=== PATIENT | male | born 1960 | race Caucasian/White ===

== ENCOUNTER 2021-11-06 09:53 | Outpatient (CLI) | payer OTHER ==
[2021-11-06 10:24] LABS: BASOPHILS # (AUTO) 0.1 10^3/uL (0.0-0.1); BASOPHILS % (AUTO) 0.5 %; EOSINOPHILS # (AUTO) 0.2 10^3/uL (0.0-0.7); HCT - HEMATOCRIT 44.6 % (42.0-52.0); LYMPHOCYTES # (AUTO) 1.7 10^3/uL (1.5-3.5); LYMPHOCYTES % (AUTO) 18.5 %; MEAN CORPUSCULAR HEMOGLOBIN 32.2 pg (27.0-31.0); MEAN CORPUSCULAR HGB CONC 33.6 g/dL (32.0-36.0); MEAN CORPUSCULAR VOLUME 95.7 fL (80.0-94.0); MEAN PLATELET VOLUME 9.2 fL (7.4-11.4); MONOCYTES # (AUTO) 0.6 10^3/uL (0.0-1.0); NEUTROPHILS # (AUTO) 6.7 10^3/uL (1.5-6.6); NEUTROPHILS % (AUTO) 72.7 %; PLT - PLATELET COUNT 288 10^3/uL (130-450); RED BLOOD COUNT 4.66 10^6/uL (4.70-6.10); RED CELL DISTRIBUTION WIDTH 11.4 % (12.0-15.0); WHITE BLOOD COUNT 9.2 x10^3/uL (4.8-10.8)
[2021-11-06 10:31] LABS: PT - PROTHROMBIN TIME 11.7 secs (9.9-12.6)
[2021-11-06 10:34] LABS: ALBUMIN 4.4 g/dL (3.2-5.5); ALBUMIN/GLOBULIN RATIO 1.2 (1.0-2.2); BILIRUBIN,TOTAL 1.3 mg/dL (0.2-1.0); CALCIUM 9.5 mg/dL (8.5-10.3); CREATININE 0.7 mg/dL (0.6-1.2); POTASSIUM 4.5 mmol/L (3.5-5.0); TOTAL PROTEIN 8.2 g/dL (6.7-8.2)
== END 2021-11-06 09:54 | disposition home or self-care (01) ==
LOC: LAB 09:53
PROVIDERS: ATTEND Internal Medicine Hematology & Oncology
DX: C44.92 Squamous cell carcinoma of skin, unspecified (principal)
CPT/HCPCS: 36415; 80050; 85610; 85730

== ENCOUNTER 2021-11-23 10:25 | Day surgery (SDC) | payer OTHER ==
[2021-11-23] MEDS ORDERED: CEFAZOLIN SODIUM IN 0.9 % NACL 2 GM/50 ML BAG IV ONE (10:40)
[2021-11-23] MEDS ORDERED: LACTATED RINGERS 1,000 ML IV ONE (10:59)
--- NOTE | 2021-11-23 11:13 | ANESTHESIA ---
Pre-Anesthesia VS, & Labs - Diagnosis squamous cell ca - Procedure portacath placement Vital Signs: Temp Pulse Resp BP Pulse Ox 36.6 C 86 4 L 32/80 L 96 11/23/21 10:47 11/23/21 10:47 11/23/21 10:47 11/23/21 10:47 11/23/21 10:47 Height: 5 ft 11 in Weight (kg): 69.3 kg Body Mass Index: 21.3 BMI Classification: Healthy weight - NPO >8 hours Home Medications and Allergies Home Medications: Ambulatory Orders Atorvastatin Calcium 40 mg PO DAILY 11/23/21 Nicotine 21 mg Patch [Nicoderm] 1 each TOP ONCE 11/23/21 traMADol [Ultram] 50 mg PO ONCE 11/23/21 Multivitamin [Multivitamins] 1 each PO DAILY 11/28/12 Aspirin [Aspirin EC] 81 mg PO DAILY 11/06/21 Atorvastatin Calcium 40 mg PO DAILY 11/23/21 Nicotine 21 mg Patch [Nicoderm] 1 each TOP ONCE 11/23/21 traMADol [Ultram] 50 mg PO ONCE 11/23/21 Allergies/Adverse Reactions: Allergies Allergy/AdvReac Type Severity Reaction Status Date / Time No Known Drug Allergies Allergy Verified 11/14/12 13:26 Anes History & Medical History - Anesthetic History Anesthesia Complications: reports: No previous complications - Medical History Cardiovascular: reports: None Pulmonary: reports: None Gastrointestinal: reports: None Urinary: reports: None Musculoskeletal: reports: Osteoarthritis, Gout Endocrine/Autoimmune: reports: None Skin: reports: None Smoking Status: Current every day smoker History of Cancer?: Yes - Surgical History General: reports: Colonoscopy Eyes Ears Nose Throat (EENT): reports: Cataracts Orthopedic: reports: Arthroscopic surgery, Other Exam General: Alert, Oriented x3 Dental: Other (poor dentition, none loose per patient) Mouth Opening: Greater than 4 Fingerbreadths Neck Mobility: Normal Mallampati classification: II Thyromental Distance: greater than 6 cm Respiratory: Lungs clear Cardiovascular: Regular rate Plan Anesthesia Type: MAC, Total IV Consent for Procedure(s) Verified and Reviewed: Yes Code Status: Attempt Resuscitation ASA classification: 3-Severe systemic disease Is this case an emergency?: No
[2021-11-23] MEDS ORDERED: MIDAZOLAM 2 MG/2 ML VIAL ONE (11:51)
[2021-11-23] MEDS ORDERED: fentaNYL 100 MCG/2 ML VIAL ONE (11:51)
[2021-11-23] MEDS ORDERED: PROPOFOL 500 MG/50 ML 500 MG/50 ML VIAL ONE (11:51)
[2021-11-23] MEDS ORDERED: BUPIVACAINE 0.25% PF 10 ML VIAL SUBQ ONE (12:28)
[2021-11-23] MEDS ORDERED: LIDOCAINE MPF 2%-EPI 1:200000 20 ML VIAL SUBQ ONE (12:29)
[2021-11-23] MEDS ORDERED: LACTATED RINGERS 300 ML IV ONE (12:38)
--- NOTE | 2021-11-23 12:41 | OPERATIVE REPORT ---
Operative Report - General Planned Procedure: Left subclavian port placement Pre-Op Diagnosis: Squamous cell carcinoma Procedure Performed: Left subclavian port placement Post Op Diagnosis: Same - Procedure Note Primary Surgeon: Davidson Anesthesia Provider: HALEIGH Barth Anesthesia Technique: Local, MAC Estimated Blood Loss (mL): 5 Indications: Biopsy-proven squamous cell cancer Findings: Port in good position Complications: None apparent - Other Other Information/Narrative: After obtaining informed consent, the patient is brought to the operating room and placed in supine position on the operating table. Following successful induction of sedation with monitored anesthesia care and appropriate padding of all bony prominences, the left chest and neck were prepped and draped in the standard surgical fashion. A timeout was held per scope protocol. All elements of the surgical safety checklist were followed before, during, and after the procedure. Following infiltration with local anesthetic to create a field block, the left subclavian vein was accessed in the deltopectoral groove. The J-wire was gently placed into the vein. Fluoroscopy was used to confirm the position of the wire and in the subclavian vein. We anesthetized the existing healed scar in the area around it for placement of the port itself. An incision was created here and carried down through the skin and subcutaneous tissue. A pocket was created with blunt dissection. The port tubing was attached to the tunneling device and passed from the access site of the vein into the pocket. It was trimmed to an appropriate length and the port attached. The port was sewn into place in the pocket. The dilator and introducer were then passed over the J-wire that was in the subclavian vein. The J-wire and dilator were removed leaving only the introducer. The tubing was then passed through the introducer and the introducer cracked and removed per commercial decorator's directions. The port was then checked for function and flushed and sofie easily. Additional local anesthetic was applied to the chest wall. The port pocket was closed with interrupted Vicryl sutures and Monocryl stitches were placed in both skin incision sites. All sponge, needle, and instrument counts were correct at the conclusion of the case. Chest x-ray in the postanesthesia care unit revealed the port in good position in the superior vena cava without evidence of pneumothorax.
[2021-11-23 13:00] VITALS: BP 122/74
--- NOTE | 2021-11-23 13:00 | XRAY Report ---
PROCEDURE: Post Port Placement 1V CXR INDICATIONS: LEFT PORT PLACEMENT TECHNIQUE: One view of the chest was acquired. COMPARISON: CT chest dated 11/09/2021 FINDINGS: Surgical changes and devices: A left-sided tunneled port device is in place with the distal tip proje cting over the lower SVC. Lungs and pleura: No pleural effusions or pneumothorax. Lungs are clear. Mediastinum: Mediastinal contours appear normal. Heart size is normal. Bones and chest wall: No suspicious bony lesions. Overlying soft tissues appear unremarkable. IMPRESSION: Interval placement of tunneled left port device with the distal tip projecting over the lower SVC. No acute cardiopulmonary abnormalities. No pneumothorax. Reviewed by: Jose Martin Guillen MD on 11/23/2021 12:58 PM PDT Approved by: Jose Martin Guillen MD on 11/23/2021 12:58 PM PDT Station ID: [id number]
--- NOTE | 2021-11-23 14:18 | ANESTHESIA POST OP EVALUATION ---
Anesthesia Post Eval - Post Anesthesia Eval Vitals: Last Vital Signs Temp 36.6 C 11/23/21 13:00 Pulse 78 11/23/21 13:00 Resp 16 11/23/21 13:00 BP 122/74 11/23/21 13:00 Pulse Ox 98 11/23/21 13:00 CV Function Including HR & BP: Stable Pain Control: Satisfactory Nausea & Vomiting: Negative Mental Status: Baseline Respiratory Status: Airway Patent Hydration Status: Satisfactory Anesthesia Complications: None
--- NOTE | 2021-11-23 16:02 | XRAY Report ---
PROCEDURE: OR Port-A-Cath INDICATIONS: SQUAMOUS CELL CANCER TECHNIQUE: Single spot fluoroscopic intraoperative image of the chest. COMPARISON: Chest radiographs 11/23/2021 FINDINGS: Intraoperative spot fluoroscopic image of the chest demonstrates a left-sided catheter with tip exclu ded from the knxup-ko-kpea of the exam. IMPRESSION: Left-sided catheter is partially imaged projecting over the chest. Reviewed by: Jack Meeks MD on 11/23/2021 4:01 PM PDT Approved by: Jack Meeks MD on 11/23/2021 4:01 PM PDT Station ID: [id number]
== END 2021-11-23 10:26 | disposition home or self-care (01) ==
LOC: SDS 10:25
PROVIDERS: ATTEND Surgery
DX: C76.0 Malignant neoplasm of head, face and neck (principal); F17.200 Nicotine dependence, unspecified, uncomplicated
CPT/HCPCS: 36561; C1788; J0690; J7120

== ENCOUNTER 2021-11-25 11:42 | Outpatient (CLI) | payer OTHER ==
[2021-11-25] MEDS ORDERED: LIDOCAINE-MPF 1% 10 ML AMP SUBQ ONE (15:02)
--- NOTE | 2021-11-27 14:13 | Ultrasound Report ---
PROCEDURE: Ultrasound-guided right forearm biopsy INDICATIONS: SQUAMOUS CELL CA TECHNIQUE: The indications, alternatives, benefits, risks, and complications of the procedure were e xplained to the patient. Written informed consent was obtained and placed in the chart. Continuous EKG and hemodynamic monitoring was started by trained personnel. Real-time sonography was utilized to choose the site for percutaneous right forearm biopsy. The skin was prepped and draped in the usual sterile fashion. 1% lidocaine was infiltrated down to the site of interest. A coaxial needle was then advanced into the site of interest under direct sonographic v isualization. A biopsy apparatus was then utilized, and core biopsies were obtained. The needle was then withdrawn; a bandage was applied to the biopsy site. COMPARISON: FINDINGS: Biopsy site(s): Right forearm Needle: Perpetuno biopsy needle set. Number of passes: 5 Medications: 1% lidocaine for local anaesthesia. Complications: None. IMPRESSION: Successful ultrasound-guided right forearm biopsy, with pathology results pending. Reviewed by: Mila Medrano MD on 11/27/2021 2:11 PM PDT Approved by: Mila Medrano MD on 11/27/2021 2:11 PM PDT Station ID: [id number]
== END 2021-11-25 11:43 | disposition home or self-care (01) ==
LOC: DI 11:42
PROVIDERS: ATTEND Internal Medicine Hematology & Oncology
DX: C44.622 Squamous cell carcinoma of skin of right upper limb, including shoulder (principal)
CPT/HCPCS: 20206

== ENCOUNTER 2021-12-09 13:13 | Emergency (ER) | payer OTHER ==
--- OUTSIDE RECORDS SUMMARY | 2021-12-09 13:44 | EXTERNAL MEDICAL SUMMARY RPT | Continuity of Care Document ---
:1960 Author Organization [facility] Address [address] [place] [address] Phone Care Team Providers Name Role Phone Nurse Unavailable Unavailable Allergies No information. Encounters No information. Medications date description facility [id number] atorvastatin All 20211117 aspirin All 20211117 probenecid-colchicine All 20211117 colchicine All Problems date description facility 20211117 Tobacco use disorder All 20211117 Tobacco dependence syndrome All 20211117 Nicotine dependence, unspecified, uncom plicated All 20211117 Malignant tumor of head and neck All 20211117 Malignant neoplasm of head, face, and n thang All 20211117 Malignant neoplasm of head, face and ne ck All 20211117 Gout, unspecified All 20211117 Gout All Results No information.
[2021-12-09 15:14] LABS: BASOPHILS % (AUTO) 0.8 %; EOSINOPHILS % (AUTO) 0.8 %; HCT - HEMATOCRIT 36.1 % (42.0-52.0); LYMPHOCYTES % (AUTO) 39.8 %; MEAN CORPUSCULAR HGB CONC 33.2 g/dL (32.0-36.0); MEAN CORPUSCULAR VOLUME 96.3 fL (80.0-94.0); MEAN PLATELET VOLUME 8.6 fL (7.4-11.4); MONOCYTES % (AUTO) 20.3 %; NEUTROPHILS % (AUTO) 38.3 %; PLT - PLATELET COUNT 173 10^3/uL (130-450); RED BLOOD COUNT 3.75 10^6/uL (4.70-6.10); RED CELL DISTRIBUTION WIDTH 11.2 % (12.0-15.0)
[2021-12-09 15:17] LABS: WHITE BLOOD COUNT 1.3 x10^3/uL (4.8-10.8)
[2021-12-09 15:18] LABS: ABNORMAL LYMPHS % (MANUAL) 0 %
[2021-12-09 15:25] LABS: ALBUMIN 3.7 g/dL (3.2-5.5); ALBUMIN/GLOBULIN RATIO 0.9 (1.0-2.2); BILIRUBIN,TOTAL 0.5 mg/dL (0.2-1.0); CALCIUM 9.5 mg/dL (8.5-10.3); CREATININE 0.7 mg/dL (0.6-1.2); POTASSIUM 4.6 mmol/L (3.5-5.0); TOTAL PROTEIN 7.7 g/dL (6.7-8.2)
[2021-12-09 15:50] LABS: BAND NEUTROPHILS % (MANUAL) 3 %; BASOPHILS % (MANUAL) 2 %; LYMPHOCYTES # (MANUAL) 0.5 10^3/uL (1.5-3.5); LYMPHOCYTES % (MANUAL) 35 %; METAMYELOCYTES % (MANUAL) 1 %; MONOCYTES # (MANUAL) 0.3 10^3/uL (0.0-1.0); MYELOCYTES % (MANUAL) 1 %
[2021-12-09 15:54] LABS: PLATELET ESTIMATE, MANUAL NORMAL (130-450,000) (NORMAL); PLATELET MORPHOLOGY NORMAL APPEARANCE (NORMAL); RBC MORPHOLOGY (MULTIPLE) NORMAL APPEARANCE (NORMAL); WBC MORPHOLOGY (MULTIPLE) NORMAL APPEARANCE (NORMAL)
[2021-12-09 15:55] LABS: DIFFERENTIAL COMMENT MANUAL DIFFERENTIAL; NEUTROPHILS # (MANUAL) 0.5 10^3/uL (1.5-6.6)
--- NOTE | 2021-12-09 15:59 | ED Physician Documentation ---
History of Present Illness - Stated complaint Stated Complaint: GLF BACK PX - Chief complaint Chief Complaint: Trauma Ch/Bk - History obtained from History obtained from: Patient, Family - History of Present Illness Timing: Today Pain level max: 6 Pain level now: 3 - Additonal information Additional information: Patient is a 61-year-old male currently undergoing chemotherapy for squamous cell carcinoma. He tripped and fell today landing on his back. Complains of lumbar spine pain, right rib pain. He was able to ambulate after the event. No loss of bowel or bladder control. No loss of consciousness. No vomiting. Worse with movement, better with rest. Took oxycodone prior to arrival. He is on oxycodone for his chronic cancer pain. No numbness or tingling. Review of Systems Constitutional: denies: Fever, Chills Throat: denies: Sore throat Respiratory: denies: Cough GI: denies: Nausea, Vomiting, Diarrhea PD PAST MEDICAL HISTORY - Past Medical History Cardiovascular: None Respiratory: None Endocrine/Autoimmune: None GI: None : None HEENT: Chronic vision loss, Chronic hearing loss Psych: None Musculoskeletal: Osteoarthritis, Gout Derm: None - Past Surgical History General: Colonoscopy Ortho: Arthroscopic surgery, Other HEENT: Cataracts - Present Medications Home Medications: Ambulatory Orders Medication Instructions Recorded Confirmed Multivitamin [Multivitamins] 1 each PO DAILY 11/28/12 11/27/21 Aspirin [Aspirin EC] 81 mg PO DAILY 11/06/21 11/27/21 Lidocaine/Prilocain 2.5% Cream 5 applic TOP UD #1 gm 11/17/21 11/23/21 [Emla 2.5% Cream] OLANZapine [Zyprexa] 5 mg PO UD #12 tablet 11/17/21 11/23/21 Ondansetron Odt [Zofran Odt] 4 mg TL Q6H PRN #30 tab 11/17/21 11/23/21 Prochlorperazine Maleate 10 mg PO Q6HR PRN #30 tab 11/17/21 11/23/21 [Compazine] Atorvastatin Calcium 40 mg PO DAILY 11/23/21 11/27/21 Nicotine 21 mg Patch [Nicoderm] 1 each TOP ONCE 11/23/21 11/27/21 Ondansetron Odt [Zofran Odt] 4 mg TL Q6H PRN #10 tablet 11/23/21 11/27/21 oxyCODONE [Roxicodone] 5 mg PO Q4-6H PRN #20 tablet 11/23/21 11/27/21 traMADol [Ultram] 50 mg PO ONCE 11/23/21 11/27/21 - Allergies Allergies/Adverse Reactions: Allergies Allergy/AdvReac Type Severity Reaction Status Date / Time No Known Drug Allergies Allergy Verified 12/09/21 13:28 - Social History Smoking Status: Current every day smoker PD ED PE NORMAL - Vitals Vital signs reviewed: Yes - General General: Alert and oriented X 3, No acute distress - HEENT HEENT: Atraumatic, PERRL, Moist mucous membranes - Neck Neck: Supple, no meningeal sign, No bony TTP - Cardiac Cardiac: RRR, Other (Mild tenderness over the right anterior lateral ribs. No crepitus. No ecchymosis.) - Respiratory Respiratory: No respiratory distress, Clear bilaterally - Abdomen Abdomen: Soft, Non tender, Non distended - Back Back: Other (Mild tenderness around L2-L3, midline. 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 Normal great toe extension bilaterally. no saddle anesthesia) Eye Opening: Spontaneous Motor: Obeys Commands Verbal: Oriented GCS Score: 15 - Psych Psych: Normal mood, Normal affect Results - Vitals Vitals: Vital Signs - 24 hr 12/09/21 12/09/21 13:23 18:25 Temperature 36.1 C L Heart Rate 68 63 Respiratory 16 18 Rate Blood Pressure 122/68 111/70 O2 Saturation 97 98 Oxygen O2 Source Room air - Labs Labs: Laboratory Tests 12/09/21 12/09/21 15:07 15:07 WBC 1.3 L* RBC 3.75 L Hgb 12.0 L Hct 36.1 L MCV 96.3 H MCH 32.0 H MCHC 33.2 RDW 11.2 L Plt Count 173 MPV 8.6 Neut # (Auto) Not Reportable Lymph # (Auto) Not Reportable Mcpherson # (Auto) Not Reportable Eos # (Auto) Not Reportable Baso # (Auto) Not Reportable Absolute Nucleated RBC Not Reportable Total Counted 100 Band Neuts % (Manual) 3 Abnorm Lymph % (Manual) 0 Metamyelocytes % 1 H Myelocytes % 1 H Nucleated RBC % Not Reportable Neutrophils # (Manual) 0.5 L* Lymphocytes # (Manual) 0.5 L Monocytes # (Manual) 0.3 Eosinophils # (Manual) 0.0 Basophils # (Manual) 0.0 Differential Comment MANUAL DIFFERENTIAL WBC Morphology NORMAL APPEARANCE Platelet Estimate NORMAL (130-450,000) Platelet Morphology NORMAL APPEARANCE RBC Morph Micro Appear NORMAL APPEARANCE Sodium 136 Potassium 4.6 Chloride 98 L Carbon Dioxide 25 Anion Gap 13.0 BUN 10 Creatinine 0.7 Estimated GFR (MDRD) 115 Glucose 115 H Calcium 9.5 Total Bilirubin 0.5 AST 36 ALT 49 Alkaline Phosphatase 123 H Total Protein 7.7 Albumin 3.7 Globulin 4.0 Albumin/Globulin Ratio 0.9 L Lipase 25 - Rads (name of study) L spine CT Radiology: Final report received, EMP read contemporaneously, See rad report standing L spine xray Radiology: Final report received, EMP read contemporaneously, See rad report chest ct Radiology: Final report received, EMP read contemporaneously, See rad report PD MEDICAL DECISION MAKING - ED course Complexity details: reviewed results, re-evaluated patient, considered dif ferential, d/w patient, d/w family, d/w lead consultant ED course: 61-year-old male with an L2 compression fracture after a fall today. Discussed the case with 1838 Dr. Velázquez, spine surgery at [facility]. Recommend standing L-spine films to ensure stability. No neurological deficits. No cauda equina. Ambulating without difficulty. Has oxycodone for pain at home. Patient and family counseled regarding signs and symptoms for which I believe and urgent re-evaluation would be necessary. Patient with good understanding of and agreement to plan and is comfortable going home at this time This document was made in part using voice recognition software. While efforts are made to proofread this document, sound alike and grammatical errors may occur. Patient will have repeat x-rays next week with his doctor. IMPRESSION: 1. No acute traumatic abnormality. 2. 2.8 cm lytic lesion of the left upper sternum consistent with metastasis. 3. Coronary artery calcifications. 4. Hypodensities of the liver are unchanged compared to the prior CT and are probably cysts. IMPRESSION: 55% acute/subacute compression deformity at L2 with moderate spinal stenosis as described above. IMPRESSION: Stable lumbar spine alignment with weightbearing. Stable vertebral body height at L2 with anterior compression fracture previously described on comparison CT. Moderate multilevel lumbar spondylosis. Departure - Departure Disposition: 01 Home, Self Care Clinical Impression: Vertebral compression fracture Qualifiers: Encounter type: initial encounter Fracture of vertebra location: lumbar Lumbar vertebra fracture level: L2 Qualified Code(s): S32.020A - Wedge compression fracture of second lumbar vertebra, initial encounter for closed fracture Condition: Good Instructions: ED Fx Comp Vertebral Follow-Up: Your,doctor in 1 week [Other] Comments: Please follow-up with your doctor in 1 week for repeat x-rays of your lumbar spine. I spoke with Dr. Velázquez, from [facility] who reviewed your images. Continue your medications as needed for pain at home. Return if you worsen. You can also follow-up with [facility] if you prefer. IMPRESSION: 55% acute/subacute compression deformity at L2 with moderate spinal stenosis as described above. Discharge Date/Time: 12/09/21 19:27
[2021-12-09] MEDS: oxyCODONE 5 MG TABLET PO STA ×2 (16:06→19:27)
--- NOTE | 2021-12-09 16:59 | CT Report ---
PROCEDURE: CHEST WO INDICATIONS: R rib pain s/p fall TECHNIQUE: Noncontrast 1mm axial images were acquired from the pulmonary apices to the posterior costophrenic an gles. Axial 5 mm soft tissue kernel reconstructions were performed as well as 8 mm axial MIP and cor onal and sagittal 5 mm reformations. For radiation dose reduction, the following was used: automate d exposure control, adjustment of mA and/or kV according to patient size. COMPARISON: CT of the chest dated 11/09/2021 FINDINGS: Image quality: Excellent. Lungs and pleura: No acute air space opacities. No pleural effusions or pneumothorax. Central and peripheral airways are patent and normal in caliber. Mediastinum: Heart size is normal. No pericardial effusion. No mediastinal adenopathy by size crit eria. Thoracic aorta and central pulmonary arteries are normal in size. Esophagus is normal in rafi tayo. No hiatal hernia. The coronary arteries have atherosclerotic calcifications. Bones and chest wall: The left upper sternum has a 2.3 cm lytic lesion suspicious for metastasis.. A compression fracture of L3 is seen which appears remote.. No axillary or supraclavicular adenopathy by size criteria. The thyroid is normal in size. A left chest wall port is noted. Abdomen: Visualized upper abdominal solid organs and bowel loops appear normal in the absence of con trast. Hypodensities in the right lobe of the liver are unchanged and measure water density consiste nt with cysts. IMPRESSION: 1. No acute traumatic abnormality. 2. 2.8 cm lytic lesion of the left upper sternum consistent with metastasis. 3. Coronary artery calcifications. 4. Hypodensities of the liver are unchanged compared to the prior CT and are probably cysts. Reviewed by: Aakash Little on 12/09/2021 4:57 PM PDT Approved by: Aakash Little on 12/09/2021 4:57 PM PDT Station ID: [id number]
--- NOTE | 2021-12-09 17:09 | CT Report ---
PROCEDURE: LUMBAR SPINE WO INDICATIONS: fall, back pain, squamous cell carcinoma TECHNIQUE: Noncontrast 3 mm thick sections acquired from the T12 level to the sacrum. Sagittal and coronal refo rmats were constructed. For radiation dose reduction, the following was used: automated exposure co ntrol, adjustment of mA and/or kV according to patient size. COMPARISON: CT abdomen pelvis 11/09/2021. FINDINGS: Image quality: Excellent. Bones: There is there is a 55% compression deformity at L2 with 4 mm retropulsion. There is moderate spinal stenosis at L2-3. This is new compared to prior exam on 11/09/2021. Fracture lucencies are pres ent within the anterior, mid and posterior aspects of the vertebral body. There is 1 to 2 mm retrolis thesis of L3 on L4 as well as 1 to 2 mm retrolisthesis of L1 on L2. There is mild disc space narrowing at L1-2 and L4-5. Soft tissues: No retroperitoneal hematomas. Low-attenuation focus is present within the liver most s uggestive of simple cyst. Visualized aorta is normal in caliber. IMPRESSION: 55% acute/subacute compression deformity at L2 with moderate spinal stenosis as described above. Reviewed by: Mila Medrano MD on 12/09/2021 5:07 PM PDT Approved by: Mila Medrano MD on 12/09/2021 5:07 PM PDT Station ID: [id number]
[2021-12-09 18:25] VITALS: BP 111/70
--- NOTE | 2021-12-09 19:36 | XRAY Report ---
PROCEDURE: Lumbar Spine 2 View INDICATIONS: standing xrays, L2 fracture TECHNIQUE: 2 views of the lumbar spine were acquired. COMPARISON: CT lumbar spine dated 12/09/2021 FINDINGS: Bones: 5 [id number] vertebrae are present. Redemonstration of L2 anterior compression fracture without significant change in alignment or vertebral body height loss on standing views. Moderate mul tilevel lumbar spondylosis. No suspicious bony lesions. Soft tissues: Overlying bowel gas pattern is normal. No suspicious soft tissue calcifications. IMPRESSION: Stable lumbar spine alignment with weightbearing. Stable vertebral body height at L2 wit h anterior compression fracture previously described on comparison CT. Moderate multilevel lumbar spo ndylosis. Reviewed by: Jose Martin Guillen MD on 12/09/2021 7:34 PM PDT Approved by: Jose Martin Guillen MD on 12/09/2021 7:34 PM PDT Station ID: [id number]
== END 2021-12-09 19:27 | disposition home or self-care (01) ==
LOC: ED 13:13
DX: S32.020A Wedge compression fracture of second lumbar vertebra, initial encounter for closed fracture (principal); W01.0XXA Fall on same level from slipping, tripping and stumbling without subsequent striking against object, initial encounter; F17.200 Nicotine dependence, unspecified, uncomplicated
CPT/HCPCS: 36415; 71250; 72100; 72131; 80053; 83690; 85025; 99282; 99284; A9270

== ENCOUNTER 2022-05-19 11:38 | Outpatient (CLI) | payer OTHER | END 2022-05-19 23:59 | disposition critical access hospital (66) | LOC: EMS 11:38 | DX: M25.552 Pain in left hip (principal); M25.562 Pain in left knee; W18.39XA Other fall on same level, initial encounter; Y93.01 Activity, walking, marching and hiking; Y92.008 Other place in unspecified non-institutional (private) residence as the place of occurrence of the external cause | CPT/HCPCS: A0425; A0429 ==

== ENCOUNTER 2022-05-19 12:02 | Inpatient (IN) | payer OTHER ==
--- NOTE | 2022-05-19 12:13 | ED Physician Documentation ---
History of Present Illness - Stated complaint Stated Complaint: GLF - Additonal information Additional information: 61-year-old male presents emergency department for evaluation of left hip femur and knee pain after ground-level fall in which she slipped while using his walker. He was unable to get up or bear weight after the fall. He denies a head strike or loss of consciousness. He is not anticoagulated. 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 Patient reports to me that he does have a known pathologic fracture of his cervical spine. He is being followed by Oncology with our [facility]. Currently undergoing chemotherapy. Review of Systems Constitutional: reports: Reviewed and negative Nose: reports: Reviewed and negative Throat: reports: Reviewed and negative Cardiac: reports: Reviewed and negative Respiratory: reports: Reviewed and negative Musculoskeletal: reports: Extremity pain, Joint pain. denies: Neck pain, Back pain Neurologic: denies: Seizure, Confused, Headache, Head injury, LOC Psychiatric: reports: Reviewed and negative PD PAST MEDICAL HISTORY - Past Medical History Cardiovascular: None Respiratory: None Endocrine/Autoimmune: None GI: None : None HEENT: Chronic vision loss, Chronic hearing loss Psych: None Musculoskeletal: Osteoarthritis, Gout Derm: None - Past Surgical History Past Surgical History: Yes General: Colonoscopy Ortho: Arthroscopic surgery, Other HEENT: Cataracts - Present Medications Home Medications: Ambulatory Orders Medication Instructions Recorded Confirmed Multivitamin [Multivitamins] 1 each PO DAILY 11/28/12 04/02/22 Aspirin [Aspirin EC] 81 mg PO DAILY 11/06/21 04/02/22 Lidocaine/Prilocain 2.5% Cream 5 applic TOP UD #1 gm 11/17/21 04/02/22 [Emla 2.5% Cream] OLANZapine [Zyprexa] 5 mg PO UD #12 tablet 11/17/21 04/02/22 Ondansetron Odt [Zofran Odt] 4 mg TL Q6H PRN #30 tab 11/17/21 04/02/22 Prochlorperazine Maleate 10 mg PO Q6HR PRN #30 tab 11/17/21 04/02/22 [Compazine] Atorvastatin Calcium 40 mg PO DAILY 11/23/21 04/02/22 Nicotine 21 mg Patch [Nicoderm] 1 each TOP ONCE 11/23/21 04/02/22 Ondansetron Odt [Zofran Odt] 4 mg TL Q6H PRN #10 tablet 11/23/21 04/02/22 traMADol [Ultram] 50 mg PO ONCE 11/23/21 04/02/22 Morphine Sulfate [Ms Contin] 1 tab PO BID 12/18/21 04/02/22 oxyCODONE [Roxicodone] 5 mg PO Q4HR PRN 12/18/21 04/02/22 cephALEXin [Keflex] 500 mg PO 04/02/22 oxyCODONE [Roxicodone] 5 mg PO Q4H PRN 10 Days #60 tablet 04/02/22 - Allergies Allergies/Adverse Reactions: Allergies Allergy/AdvReac Type Severity Reaction Status Date / Time No Known Drug Allergies Allergy Verified 05/19/22 12:09 - Social History Does the pt smoke?: No Smoking Status: Never smoker Does the pt drink ETOH?: Yes Does the pt have substance abuse?: No - Immunizations Immunizations are current?: Yes PD ED PE NORMAL - General General: Alert and oriented X 3, No acute distress - HEENT HEENT: Atraumatic - Neck Neck: Supple, no meningeal sign, No adenopathy, No JVD, Other (Patient is fully ranging his neck in all planes. No tenderness elicited) - Cardiac Cardiac: RRR, No murmur, No gallop - Respiratory Respiratory: No respiratory distress, Clear bilaterally - Abdomen Abdomen: Normal bowel sounds, Soft - Extremities Extremities: Other (No tenderness with palpation of the pelvic ring. However patient will not allow ranging of the left hip secondary to femur and knee pain. Mild lateral malrotation or shortening of the leg. Distal 2+ DP pulse. There is tenderness without ecchymosis of the proximal femur medial thigh) - Neuro Neuro: Alert and oriented X 3, humane officer 2-12 intact Eye Opening: Spontaneous Motor: Obeys Commands Verbal: Oriented GCS Score: 15 Results - Vitals Vitals: Vital Signs - 24 hr 05/19/22 05/19/22 12:09 12:28 Temperature 36.0 C L Heart Rate 77 78 Respiratory 20 Rate Blood Pressure 133/85 H 133/85 H O2 Saturation 100 100 Oxygen O2 Source Room air - Labs Labs: Laboratory Tests 11/09/22 11/09/22 11/09/22 12:12 12:12 12:12 WBC 1.6 L* RBC 2.18 L Hgb 8.2 L Hct 24.9 L MCV 114.2 H MCH 37.6 H MCHC 32.9 RDW 13.7 Plt Count 82 L MPV 11.8 H Neut # (Auto) 0.9 L Lymph # (Auto) 0.5 L [place] # (Auto) 0.0 Eos # (Auto) 0.1 Baso # (Auto) 0.0 Absolute Nucleated RBC 0.00 Nucleated RBC % 0.0 Manual Slide Review Indicated Platelet Estimate DECREASED (<130,000) Platelet Morphology NORMAL APPEARANCE RBC Morph Micro Appear 2+ MACROCYTOSIS PT 11.7 INR 1.0 Sodium 136 Potassium 4.0 Chloride 100 L Carbon Dioxide 25 Anion Gap 11.0 BUN 23 H Creatinine 0.7 Estimated GFR (MDRD) 115 Glucose 125 H Calcium 9.5 Total Bilirubin 1.1 H AST 19 ALT 18 Alkaline Phosphatase 65 Total Protein 6.9 Albumin 4.3 Globulin 2.6 Albumin/Globulin Ratio 1.7 Lipase 24 - Rads (name of study) cervical ct Radiology: Final report received (Stable appearing subacute chronic pathologic fractures involving the left side of C3 vertebral body not significantly changed from prior studies. No new cervical spine fracture or dislocation.) head ct Radiology: Final report received (No CT evidence of acute intracranial abnormalities) left femur xr Radiology: Final report received (Acute displaced fracture involving the subcapital region of left femoral neck. No mid to distal femoral shaft fracture) pelvic xr Radiology: Final report received (Acute displaced left femoral neck fracture as above) PD MEDICAL DECISION MAKING - ED course Complexity details: reviewed results, re-evaluated patient, considered differential, d/w patient ED course: 61-year-old male who has a history of squamous cell carcinoma with known mets to the bone and liver undergoing current chemotherapy presents emergency department after a ground-level fall this morning onto his left hip. He does have a known C3 pathologic fracture. He presents to the emergency department alert and well-appearing. There is some very mild shortening and malrotation of the left leg and tenderness at the proximal femur. Subsequent x-ray imaging of the hip and femur does show a displaced femoral neck fracture. We did also reimage his head and cervical spine and do find an unchanged C3 fracture of the vertebral body. CBC obtained today in the emergency department shows an neutropenia consistent with a history of cancer and active chemotherapy. He is mildly thrombocytopenic and anemic with a hemoglobin of 8.2. His electrolytes showed no worrisome derangement. I discussed this case with on-call orthopedic surgeon Dr. Brothers. Also discussed the case with our hospitalist Dr. Thompson. She feels that the patient can be adequately managed here at [facility]. Therefore Dr. Brothers will plan to take him to surgery this afternoon for operative repair of the femoral neck fracture. I also discussed this case with Wendi Perez the [employer]NA[employer]. She was able to personally review the cervical spine imaging and is aware of the known pathologic cervical fracture. Further care is now transferred to the hospitalist and surgical team. The patient was aware of the diagnosis and plan for operative intervention as well as his son who was at the bedside Departure - Departure Disposition: 66 [facility] DC/Xfer Clinical Impression: Fall from ground level Femoral neck fracture Qualifiers: Encounter type: initial encounter Fracture type: closed Laterality: left Qualified Code(s): S72.002A - Fracture of unspecified part of neck of left femur, initial encounter for closed fracture Pathologic fracture Qualifiers: Pathology associated with fracture: neoplastic disease Site of pathological fracture: vertebra Encounter type: initial encounter Qualified Code(s): M84.58XA - Pathological fracture in neoplastic disease, other specified site, initial encounter for fracture
[2022-05-19] MEDS ORDERED: oxyCODONE 5 MG TABLET PO STA (12:14)
[2022-05-19 12:27] LABS: BASOPHILS % (AUTO) 0.6 %; EOSINOPHILS # (AUTO) 0.1 10^3/uL (0.0-0.7); EOSINOPHILS % (AUTO) 6.2 %; HCT - HEMATOCRIT 24.9 % (42.0-52.0); HGB - HEMOGLOBIN 8.2 g/dL (14.0-18.0); LYMPHOCYTES # (AUTO) 0.5 10^3/uL (1.5-3.5); LYMPHOCYTES % (AUTO) 32.1 %; MEAN CORPUSCULAR HEMOGLOBIN 37.6 pg (27.0-31.0); MEAN CORPUSCULAR HGB CONC 32.9 g/dL (32.0-36.0); MEAN CORPUSCULAR VOLUME 114.2 fL (80.0-94.0); MEAN PLATELET VOLUME 11.8 fL (7.4-11.4); MONOCYTES % (AUTO) 2.5 %; NEUTROPHILS # (AUTO) 0.9 10^3/uL (1.5-6.6); NEUTROPHILS % (AUTO) 57.4 %; PLT - PLATELET COUNT 82 10^3/uL (130-450); RED BLOOD COUNT 2.18 10^6/uL (4.70-6.10); RED CELL DISTRIBUTION WIDTH 13.7 % (12.0-15.0)
[2022-05-19 12:33] LABS: PT - PROTHROMBIN TIME 11.7 secs (9.9-12.6)
[2022-05-19 12:34] LABS: ALBUMIN 4.3 g/dL (3.2-5.5); ALBUMIN/GLOBULIN RATIO 1.7 (1.0-2.2); BILIRUBIN,TOTAL 1.1 mg/dL (0.2-1.0); CALCIUM 9.5 mg/dL (8.5-10.3); CREATININE 0.7 mg/dL (0.6-1.2); TOTAL PROTEIN 6.9 g/dL (6.7-8.2)
[2022-05-19 12:38] LABS: PLATELET ESTIMATE, MANUAL DECREASED (<130,000) (NORMAL); PLATELET MORPHOLOGY NORMAL APPEARANCE (NORMAL); RBC MORPHOLOGY (MULTIPLE) 2+ MACROCYTOSIS (NORMAL); SLIDE REVIEW? Indicated; WHITE BLOOD COUNT 1.6 x10^3/uL (4.8-10.8)
--- NOTE | 2022-05-19 13:22 | CT Report ---
PROCEDURE: CERVICAL SPINE WO INDICATIONS: glf; cancer patient TECHNIQUE: Noncontrast 3 mm thick sections acquired from the skull base to the T4 level. Sagittal and coronal r eformats were then constructed. For radiation dose reduction, the following was used: automated exp osure control, adjustment of mA and/or kV according to patient size. COMPARISON: CT neck soft tissue dated 04/23/2022 and MRI of cervical spine dated 04/25/2022. FINDINGS: Image quality: Excellent. Bones: Again noted is subacute to chronic pathologic fracture involving left side of C3 vertebral bod y with up to 70% loss of left L3 vertebral body height and extension to involve left pedicle of C3 un changed from prior study. No new cervical spine fracture or dislocation is noted. Degenerative endpla te changes throughout cervical spine is again seen with mild to moderate central canal stenosis and b ilateral neural foramina narrowing. Seen on previous MR study. Visualized superior ribs are intact. Soft tissues: Prevertebral soft tissues are normal in thickness. No paravertebral hematomas. No ap ical pneumothoraces. Previously described soft tissue fullness overlying right submandibular gland a nteriorly is grossly unchanged. IMPRESSION: 1. Stable appearing subacute to chronic pathologic fracture involving left side of C3 vertebral body not significantly changed from prior studies. No new cervical spine fracture or dislocation. 2. Degenerative disc disease throughout cervical spine unchanged from prior study. 3. Stable appearing soft tissue fullness along overlying anterior and inferior aspect of right subman dibular gland unchanged from previous CT of neck soft tissue study. Reviewed by: Elder Duarte MD on 05/19/2022 1:21 PM PST Approved by: Elder Duarte MD on 05/19/2022 1:21 PM PST Station ID: [id number]
--- NOTE | 2022-05-19 13:23 | CT Report ---
PROCEDURE: HEAD WO INDICATIONS: GLF; cancer patient TECHNIQUE: Noncontrast 4.5 mm thick angled axial sections acquired from the foramen magnum to the vertex. For r adiation dose reduction, the following was used: automated exposure control, adjustment of mA and/or kV according to patient size. COMPARISON: None FINDINGS: Image quality: Excellent. CSF spaces: Basal cisterns are patent. No extra-axial fluid collections. The ventricles are symmet jennifer in size and shape. Brain: No intracranial bleeds or masses. There is cerebral volume loss for age, with resultant vent ricular and sulcal prominence. There are periventricular and deep white matter chronic small vessel ischemic changes. There is intracranial internal carotid artery atherosclerosis. Skull and face: Calvarium and visualized facial bones appear intact, without suspicious lesions. Sinuses: Visualized sinuses and mastoids are clear. IMPRESSION: 1. No CT evidence of acute intracranial abnormalities. 2. Age-related volume loss and moderate White matter chronic small vessel ischemic changes. 3. No gross acute skull fracture. Reviewed by: Elder Duarte MD on 05/19/2022 1:22 PM PST Approved by: Elder Duarte MD on 05/19/2022 1:22 PM PST Station ID: [id number]
--- NOTE | 2022-05-19 13:25 | XRAY Report ---
PROCEDURE: Pelvis 1 View INDICATIONS: glf; hip pain TECHNIQUE: 1 view(s) of the pelvis acquired. COMPARISON: None. FINDINGS: Bones: Acute left femoral neck fracture is seen with superior migration of left femoral shaft in rela tion to femoral head. Bilateral hip joint osteoarthritic changes are seen. No evidence of avascular n ecrosis of femoral head. No suspicious bony lesions. Soft tissues: Visualized bowel gas pattern is normal. No suspicious soft tissue calcifications. IMPRESSION: Acute displaced left femoral neck fracture as above. Reviewed by: Elder Duarte MD on 05/19/2022 1:24 PM PST Approved by: Elder Duarte MD on 05/19/2022 1:24 PM PST Station ID: [id number]
--- NOTE | 2022-05-19 13:26 | XRAY Report ---
PROCEDURE: Femur 2V LT INDICATIONS: glf; cancer; unable to bear weight TECHNIQUE: 4 views of the femur were acquired. COMPARISON: None. FINDINGS: Bones: Acute fracture involving the subcapital region of left femoral neck with superior migration of femoral shaft in relation to femoral head. Left hip and left knee joint osteoarthritic changes are s een. No other fracture or dislocation.. No suspicious bony lesions. Soft tissues: No suspicious soft tissue calcifications or masses. IMPRESSION: Acute displaced fracture involving subcapital region of left femoral neck. No mid to distal femoral s haft fracture. Reviewed by: Elder Duarte MD on 05/19/2022 1:25 PM PST Approved by: Elder Duarte MD on 05/19/2022 1:25 PM PST Station ID: [id number]
[2022-05-19] MEDS ORDERED: SODIUM CHLORIDE FLUSH 0.9% 10 ML SYRINGE IVP PRN (13:29)
[2022-05-19] MEDS ORDERED: ONDANSETRON ODT 4 MG TABLET TL PRN (13:29)
[2022-05-19] MEDS ORDERED: MORPHINE 2 MG/ML CARPUJECT IVP PRN (13:29)
[2022-05-19] MEDS ORDERED: ACETAMINOPHEN 325 MG TABLET PO PRN (13:29)
[2022-05-19] MEDS ORDERED: ONDANSETRON 4 MG/2 ML VIAL IVP PRN (13:29)
--- NOTE | 2022-05-19 13:48 | HISTORY & PHYSICAL EXAMINATION ---
Chief Complaint - Chief Complaint Chief Complaint: fall with hip pain History of Present Illness - Admitted From Admitted From:: home via EMS - History Obtained From Records Reviewed: [facility] History obtained from: patient and ER MD Exam Limitations: none - History of Present Illness HPI Comment/Other: This unfortunate gentleman presented to oncology in October 2021 because of a right-sided neck mass with a right forearm mass. He is a greater than [id number] smoker. The mass was biopsied October 29 and showed a moderately differentiated squamous cell carcinoma. Staging CT of the neck, chest, abdomen and pelvis showed liver mets. The mass continued to grow was quite uncomfortable and he was started on triple therapy with combination of cis- [place], pembrolizumab. Treatment intent is palliative. The right forearm was eventually biopsied and it is proven to be metastatic disease. He also had C3 osteolytic metastatic disease with collapse. The metastatic disease is in the neural foramina of C2-C3 and C3-C4 with pathologic fracture. He remains asymptomatic with regards to the neck. His overall pain in the forearm and neck is managed by oxycodone 5 mg every 4-6 hours as needed. He completed 6 cycles of pembrolizumab/carboplatin/paclitaxel. Starting May 14 he is going to be continued on paclitaxel and pembrolizumab every 3 weeks. Complications of chemotherapy have been thrombocytopenia. He was supposed to receive Zometa once he received a dental evaluation. Today he had a ground-level fall and slipped and fell on his left side. There is no blow to his head, no loss of consciousness and he does not take any blood thinners other than an aspirin. He has been unable to weight-bear on the left hip and it is shortened and externally rotated. EMS was called and he was brought to the emergency room. Work-up in the emergency room included a C-spine CT. He has a stable appearing subacute to chronic pathologic fracture of the left side of C3 vertebral body that is not significantly changed. No new C-spine fractures or dislocation. Is a stable appearing soft tissue fullness along the overlying anterior and inferior aspect of the right submandibular gland unchanged from previous CT. Head CT is without acute intracranial abnormalities. He does have age-related volume loss and moderate white matter chronic small vessel ischemic changes. Pelvis x-ray has an acute displaced left femoral neck fracture. The femur film describes it as involving the subcapital region of the left femoral neck. No mid to distal femoral shaft fracture. The emergency room provider discussed the case with me. I in turn discussed the case with Dr. Jenkins (orthopedics) and HALEIGH Adame all day. The patient himself denies any acute shortness of breath, worsening cardiovascular changes, chest pain, and has no previous history of stroke, FL, atrial fibrillation or valvular heart disease. After group discussion, it was decided that the patient will be an adequate candidate for facility even though we are a critical access hospital. I am being asked to admit the patient to my service with orthopedic consultation. History - Past Medical History Cardiovascular: reports: None Respiratory: reports: None Neuro: reports: None Endocrine/Autoimmune: reports: None GI: reports: None : reports: None HEENT: reports: Chronic vision loss, Chronic hearing loss Psych: reports: None Musculoskeletal: reports: Osteoarthritis, Gout Derm: reports: None MRSA Hx?: No Other Past Medical History: 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 alcohol abuse. tobacco abuse - Past Surgical History General: reports: Colonoscopy Ortho: reports: Arthroscopic surgery, Other HEENT: reports: Cataracts - Family & Social History Family History Comment/Other: Dad in his 70s of complications of smoking, blood pressure, and strokes. Mom in her 80s of complications of lung cancer. 3 brothers and 3 sisters. He thinks they are all healthy but he is not sure. 3 children are healthy as far as he knows without high blood pressure, cancer, heart attack, stroke, diabetes Living arrangement: At home Living Situation: With spouse/s.o. Social History Notes: Started smoking at the age of 13. Stopped for about 2 to 3 years. But then resumed. Did some cigars. Overall smoked up to 2 packs/day. Currently smoking half a pack per day. Alcohol is anywhere between 6-12 beers a day depending on the occasion. he can go a day or 2 without drinking. No history of alcohol withdrawal. No recreational substance abuse. Retired [employer]. Repaired hydraulics on jet engines - Substance History Abuse: Recurrent use of substance despite neg consequences: Alcohol, Other (tobacco) Abuse Issues: Other (cancer) - POLST Patient has POLST: No POLST Status: DNR ("I have not made it legal" but he says he wants to be a DNR) Meds/Allgy - Home Medications Home Medications: Ambulatory Orders Medication Instructions Recorded Confirmed Multivitamin [Multivitamins] 1 each PO DAILY 11/28/12 05/19/22 Aspirin [Aspirin EC] 81 mg PO DAILY 11/06/21 05/19/22 Atorvastatin Calcium 40 mg PO DAILY 11/23/21 05/19/22 Nicotine 21 mg Patch [Nicoderm] 1 each TOP ONCE 11/23/21 05/19/22 Ascorbic Acid [Vitamin C] 1 tab PO DAILY 05/19/22 05/19/22 Cholecalciferol [Vitamin D3] 1 tab PO DAILY 05/19/22 05/19/22 Cyanocobalamin (Vitamin B-12) 1 tab PO DAILY 05/19/22 05/19/22 [Vitamin B12] - Allergies Allergies/Adverse Reactions: Allergies Allergy/AdvReac Type Severity Reaction Status Date / Time No Known Drug Allergies Allergy Verified 05/19/22 12:09 Review of Systems - Constitutional Constitutional: reports: Weight loss - Eyes Eyes: reports: Corrective lenses, Other (Cataracts taken care of and eyes not a problem) - Ears, Nose & Throat Ears, Nose & Throat: reports: Hearing loss (Mild) - Cardiovascular Cariovascular: denies: Irregular heart rate, Palpitations, Chest pain, Edema - Respiratory Respiratory: reports: Cough (Daily, for years, no change in phlegm production), Sputum production, SOB with exertion. denies: Wheezing, Snoring, Hemoptysis, SOB at rest - Gastrointestinal Gastrointestinal: denies: Abdominal pain, Abdominal distention, Constipation, Diarrhea, Change in bowel habits - Genitourinary Genitourinary: reports: Urgency, Nocturia, Other (Decreased stream). denies: Dysuria, Frequency, Hematuria, Incontinence, Flank pain - Musculoskeletal Musculoskeletal: reports: Stiffness, Joint pain. denies: Muscle pain, Back pain, Muscle aches - Integumentary Integumentary: reports: Pruritis (Constantly now. He is always itching all over his body), Dryness. denies: Rash, Lesions, Lumps, Acne - Neurological Neurological: denies: General weakness, Focal weakness, Headache, Dizziness, Memory problems, Pre-existing deficit - Psychiatric Psychiatric: denies: Depression, Anxiety, Suicidal - Endocrine Endocrine: reports: Intolerance to cold. denies: Polyuria, Polydypsia, Polyphagia - Hematologic/Lymphatic Hematologic/Lymphatic: denies: Anemia, Bruising, Petechiae Prior Level of Functionality: No use of durable medical equipment is independent with eating, dressing, toileting. Can still drive. Exam - Vital Signs Reviewed Vital Signs: Yes Vital Signs: Vital Signs x48h Temp Pulse Resp BP Pulse Ox 05/19/22 12:28 78 133/85 H 100 05/19/22 12:09 36.0 C L 77 20 133/85 H 100 - Physical Exam General Appearance: positive: Alert, Other (Thin, white male with alopecia) Eyes Bilateral: positive: PERRL, EOMI ENT: positive: No signs of dehydration, Other (No buccal or oral mucosal lesions) Neck: positive: No JVD Respiratory: positive: No respiratory distress. negative: Wheezes, Rales, Rhonchi Cardiovascular: positive: Regular rate & rhythm, Systolic murmur. negative: Gallop/S4, Friction rub Abdomen: positive: Non-tender, No organomegaly, Nml bowel sounds, No distention Skin: positive: Warm, Dry, Pallor Extremities: positive: No pedal edema. negative: Full ROM (Agonizing pain if he tries to move that affected hip) Neurologic/Psychiatric: positive: Oriented x3, CN's nml (2-12), Motor nml Conclusion/Plan - Problem List (1) Femur fracture, left Conclusion/Plan: This seems to be a fracture due to osteoporosis. He was due to get Zometa but was awaiting dental evaluation until that could be given. Films do not confirm that he has metastatic disease to the femur. Plan: Inpatient status Orthopedic consultation done with surgeon and he will be going to the operating room tomorrow N.p.o. after midnight Type and screen for blood products Reevaluate the patient postoperatively for PT needs to see if he is a candidate for fpc facility placement. Qualifiers: Encounter type: initial encounter Femur location: intertrochanteric Fracture type: closed Fracture alignment: displaced Qualified Code(s): S72.142A - Displaced intertrochanteric fracture of left femur, initial encounter for closed fracture (2) Pre-op evaluation Conclusion/Plan: With his [employer] NSQIP, he is at 11.9% risk of serious complication, and 13.6% risk of any complication. 3.6% risk of pneumonia, and an 8.2% risk of readmission. He is a higher than average risk with regards to and having to return to the OR. It is anticipated he will need discharge to a fpc facility for rehab. Revised cardiac index is 0 and this puts him at a class I for a perioperative cardiac event. Case discussed with anesthesia (3) Metastatic squamous cell carcinoma to head and neck Conclusion/Plan: Metastatic disease is to C-spine, liver. Anesthesia has already looked at the films. The collapse from the cancer appears to be stable. Even though it is in the neural foramina, there are no symptoms. She will take that into account when she puts the patient to sleep tomorrow. Anesthesia will be general anesthesia and not epidural secondary to platelets. (4) Pancytopenia due to antineoplastic chemotherapy Conclusion/Plan: I have asked the oncologist on-call at the [facility] to give me a call if there is any contraindication to surgery based on the platelets of over 80,000. Patient is pancytopenic due to his chemotherapy and I expect that there will be some acute blood loss anemia superimposed on his bone marrow suppression. I will type and cross for 1 unit with the anticipation of giving a unit if he drops below 8 tomorrow morning. I will verify with oncology as to what the cutoff is for platelet transfusion (5) Tobacco abuse Conclusion/Plan: nicotine patch (6) Alcohol abuse Conclusion/Plan: CIWA protocol. No hx of withdrawal. - Lab Results Lab results reviewed: Yes Fish Bones: 05/19/22 12:12 05/19/22 12:12 - Diagnostic Imaging Results Diagnostic Imaging Results: positive: Final report reviewed - EKG Results EKG Interpreted Independently: No Core Measures - Anticipated LOS I expect patient to be DC'd or transferred within 96 hours.: Yes - DVT/VTE - Prophylaxis VTE/DVT Device ordered at admit?: Yes
[2022-05-19] MEDS ORDERED: SODIUM CHLORIDE 0.9% 1,000 ML IV SCH (14:00)
--- NOTE | 2022-05-19 14:25 | HISTORY & PHYSICAL EXAMINATION ---
HPI - History Obtained From History obtained from: Patient, Family Exam limitations: No limitations - History of Present Illness HPI Comment/Other: This is a 61-year[place] He normally uses a walker to ambulate. He took a fall yesterday, ground-level but was able to ambulate and was doing well until this morning he took a second fall. After the second fall this morning he was unable to bear weight and had to be assisted to move and be brought to the emergency room here at [facility]. He has marked pain to the left upper thigh, no other areas of pain. He thinks he lost his balance using his walker at home today. He denies chest pain, shortness of breath, syncope or loss of consciousness associated with his fall. 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 He is currently on chemotherapy and followed by oncology. He has been diagnosed in about October of this year and has had progressive debility with weight loss and weakness. He denies pathologic fracture but does have a known history of a pathologic lesion C3 vertebrae. He is a known chronic smoker and chronic user of alcohol. He is ambulatory, walks indoors and limited walking outdoors as well. He tries to use a walking aid is much as possible. He has not had any previous left hip problems. He did have a episode of cellulitis to his feet but this has resolved with antibiotics. He denies any history of bleeding issues. 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 alcohol abuse. tobacco abuse - Past Surgical History General: positive: Colonoscopy Ortho: positive: Arthroscopic surgery, Other HEENT: positive: Cataracts Social & Family Hx - Social History Does the pt smoke?: No Smoking Status: Heavy tobacco smoker Does the pt drink ETOH?: Yes Does the pt have substance abuse?: No - POLST Patient has POLST: No POLST Status: Full Code Meds/Allgy - Home Medications Home Medications: Ambulatory Orders Medication Instructions Recorded Confirmed Multivitamin [Multivitamins] 1 each PO DAILY 11/28/12 04/02/22 Aspirin [Aspirin EC] 81 mg PO DAILY 11/06/21 04/02/22 Lidocaine/Prilocain 2.5% Cream 5 applic TOP UD #1 gm 11/17/21 04/02/22 [Emla 2.5% Cream] OLANZapine [Zyprexa] 5 mg PO UD #12 tablet 11/17/21 04/02/22 Ondansetron Odt [Zofran Odt] 4 mg TL Q6H PRN #30 tab 11/17/21 04/02/22 Prochlorperazine Maleate 10 mg PO Q6HR PRN #30 tab 11/17/21 04/02/22 [Compazine] Atorvastatin Calcium 40 mg PO DAILY 11/23/21 04/02/22 Nicotine 21 mg Patch [Nicoderm] 1 each TOP ONCE 11/23/21 04/02/22 Ondansetron Odt [Zofran Odt] 4 mg TL Q6H PRN #10 tablet 11/23/21 04/02/22 traMADol [Ultram] 50 mg PO ONCE 11/23/21 04/02/22 Morphine Sulfate [Ms Contin] 1 tab PO BID 12/18/21 04/02/22 oxyCODONE [Roxicodone] 5 mg PO Q4HR PRN 12/18/21 04/02/22 cephALEXin [Keflex] 500 mg PO 04/02/22 oxyCODONE [Roxicodone] 5 mg PO Q4H PRN 10 Days #60 tablet 04/02/22 - Allergies Allergies/Adverse Reactions: Allergies Allergy/AdvReac Type Severity Reaction Status Date / Time No Known Drug Allergies Allergy Verified 05/19/22 12:09 Exam - Vital Signs Vital Signs: Vital Signs x48h Temp Pulse Resp BP Pulse Ox 05/19/22 12:28 78 133/85 H 100 05/19/22 12:09 36.0 C L 77 20 133/85 H 100 - Physical Exam General Appearance: positive: Mild distress Peripheral Pulses: positive: 2+ Skin: positive: Color nml, Warm, Dry Neurologic/Psychiatric: positive: Oriented x3, Motor nml, Sensation nml Comments/Other: Upper extremities do not show any sign of injury. The right lower extremity is also not showing any sign of injury. The left lower extremity has marked pain with any attempted passive motion left hip. There is shortening of left leg and external rotation deformity as well. He points to pain to his left upper thigh, grabbing his left thigh with his left hand when attempting to move his left leg passively. There is no neurovascular deficit to left leg. His skin is intact to left hip. There is no sign of hematoma to left hip area Results - Lab Results Fish Bones: 05/19/22 12:12 05/19/22 12:12 Other Lab Results: Lab Results x24hrs 05/19/22 05/19/22 05/19/22 Range/Units 12:12 12:12 12:12 WBC 1.6 L* (4.8-10.8) x10^3/uL RBC 2.18 L (4.70-6.10) 10^6/uL Hgb 8.2 L (14.0-18.0) g/dL Hct 24.9 L (42.0-52.0) % MCV 114.2 H (80.0-94.0) fL MCH 37.6 H (27.0-31.0) pg MCHC 32.9 (32.0-36.0) g/dL RDW 13.7 (12.0-15.0) % Plt Count 82 L (130-450) 10^3/uL MPV 11.8 H (7.4-11.4) fL Neut # (Auto) 0.9 L (1.5-6.6) 10^3/uL Lymph # (Auto) 0.5 L (1.5-3.5) 10^3/uL [place] # (Auto) 0.0 (0.0-1.0) 10^3/uL Eos # (Auto) 0.1 (0.0-0.7) 10^3/uL Baso # (Auto) 0.0 (0.0-0.1) 10^3/uL Absolute Nucleated RBC 0.00 x10^3/uL Nucleated RBC % 0.0 /100WBC Manual Slide Review Indicated Platelet Estimate DECREASED (<130,000) (NORMAL) Platelet Morphology NORMAL APPEARANCE (NORMAL) RBC Morph Micro Appear 2+ MACROCYTOSIS (NORMAL) PT 11.7 (9.9-12.6) secs INR 1.0 (0.8-1.2) Sodium 136 (135-145) mmol/L Potassium 4.0 (3.5-5.0) mmol/L Chloride 100 L (101-111) mmol/L Carbon Dioxide 25 (21-32) mmol/L Anion Gap 11.0 (6-13) BUN 23 H (6-20) mg/dL Creatinine 0.7 (0.6-1.2) mg/dL Estimated GFR (MDRD) 115 (>89) Glucose 125 H (70-100) mg/dL Calcium 9.5 (8.5-10.3) mg/dL Total Bilirubin 1.1 H (0.2-1.0) mg/dL AST 19 (10-42) IU/L ALT 18 (10-60) IU/L Alkaline Phosphatase 65 (42-121) IU/L Total Protein 6.9 (6.7-8.2) g/dL Albumin 4.3 (3.2-5.5) g/dL Globulin 2.6 (2.1-4.2) g/dL Albumin/Globulin Ratio 1.7 (1.0-2.2) Lipase 24 (22-51) U/L - Diagnostic Imaging Results Diagnostic Imaging Results: positive: Read independently - Other Other Results/Comments: There is a possible appearing lytic lesion within the intertrochanteric region left hip Impression/Plan - Problem List Problem List: 1. Completely displaced femoral neck fracture left hip, pathologic 2. Metastatic squamous cell cancer with known metastases to liver, sternum and C3 vertebrae 3 pancytopenia with low hemoglobin, white blood cell count and platelets 4. Chronic tobacco use 5. Chronic alcohol use 6. Weight loss and debility associated with chronic disease Plan I discussed the treatment alternatives with the patient and his son. He did this is treated with surgical approach which would be a hemiarthroplasty versus nonoperative approach.. No matter how this fracture is treated there is significant morbidity and mortality. The patient and family desire surgical treatment which would be a hemiarthroplasty of his left hip. This would stabilize the hip fracture, decrease his pain and allow for early mobilization. Unfortunately, his comorbidities placing him at a much higher risk than average for complications including perioperative bleeding, infection, wound healing problems, adverse reaction to anesthesia or medication. With his history of pancytopenia, chronic use of tobacco and alcohol, he is at high risk of infection. He is also had significant risk for cardiovascular and cerebrovascular issues including myocardial infarction, cerebrovascular accident and pulmonary embolus. The specific complications include perioperative dislocation of hip, perioperative fracture of acetabulum or femur, injury to adjacent structures such as nerve or artery, perioperative bleeding and adverse reaction to anesthesia or medication. I have discussed the risk, goals and likelihood of achieving goals, alternatives to surgery and their consequences, disability and . Patient is agreement to proceeding with surgery for his left hip fracture. This would involve a left hip hemiarthroplasty. His son is present and also concurs and thinks that surgery would be best. His son works on our med surgical floor. I have discussed this case with our emergency room provider Tanika Zhao, hospitalist Dr. Brianna Thompson and mail handler equipment operator Wendi Barth. The plan is admission to the hospital, evaluation by our hospitalist including resuscitation with fluids and blood transfusion. The plan is to do the surgery tomorrow midday. He will require a general anesthetic especially with low platelets. I have suggested a gram of Tranexanuc acid today to reduce bleeding.
--- NOTE | 2022-05-19 15:06 | PHARMACY PROGRESS NOTE ---
- Best Possible Medication History Admit Date and Time: 05/19/22 6108 Processed by: Pharmacy Medication History completed: Yes Patient Interview: Completed Secondary Source(s): Other family member, Pharmacy records (Pt's son is Laz who knows his meds. [facility] As the person ultimately responsible for medication therapy, providers are able to order a medication from an existing home medication list in [facility] via the "Reconcile Routine" prior to Confirmation of that medication by clerical support. Such practice is discouraged except when the physician, in their clinical judgment, deems that a medical need exists for a medication without regard to previous use.
[2022-05-19] MEDS: NICOTINE 14 MG PATCH TOP SCH (15:56)
[2022-05-19] MEDS: oxyCODONE 5 MG TABLET PO PRN ×2 (17:28→21:51)
[2022-05-19] MEDS: SODIUM CHLORIDE FLUSH 0.9% 10 ML SYRINGE IVP SCH (17:28)
[2022-05-19] MEDS ORDERED: chlordiazePOXIDE 5 MG CAPSULE PO PRN (18:14)
[2022-05-19 18:38] LABS: PT - PROTHROMBIN TIME 11.4 secs (9.9-12.6)
[2022-05-20] MEDS: SODIUM CHLORIDE FLUSH 0.9% 10 ML SYRINGE IVP SCH ×3 (00:22→17:07)
[2022-05-20] MEDS: oxyCODONE 5 MG TABLET PO PRN ×2 (02:07→05:56)
[2022-05-20 04:00] LABS: BILIRUBIN,URINE NEGATIVE (NEGATIVE); GLUCOSE, URINE (UA) NEGATIVE (NEGATIVE); KETONES,URINE (UA) NEGATIVE (NEGATIVE); LEUKOCYTE ESTERASE, URINE NEGATIVE (NEGATIVE); NITRITE,URINE NEGATIVE (NEGATIVE); OCCULT BLOOD,URINE NEGATIVE (NEGATIVE); PROTEIN,URINE NEGATIVE (NEGATIVE); UROBILINOGEN,URINE 0.2 (NORMAL) E.U./dL (NORMAL)
[2022-05-20 04:08] LABS: BACTERIA,URINE None Seen /HPF (None Seen); CLARITY,URINE CLEAR (CLEAR); CRYSTALS,URINE 3-5 Calcium Oxalate /LPF; RBC,URINE None Seen /HPF (0-5); SQUAMOUS EPITHELIAL CELL,UR NONE SEEN (<= Few); WBC,URINE 0-3 /HPF (0-3)
[2022-05-20 05:22] LABS: BASOPHILS % (AUTO) 0.8 %; EOSINOPHILS % (AUTO) 5.6 %; HCT - HEMATOCRIT 23.4 % (42.0-52.0); HGB - HEMOGLOBIN 7.9 g/dL (14.0-18.0); LYMPHOCYTES % (AUTO) 27.2 %; MEAN CORPUSCULAR HEMOGLOBIN 37.3 pg (27.0-31.0); MEAN CORPUSCULAR HGB CONC 33.8 g/dL (32.0-36.0); MEAN CORPUSCULAR VOLUME 110.4 fL (80.0-94.0); MEAN PLATELET VOLUME 10.3 fL (7.4-11.4); MONOCYTES % (AUTO) 2.4 %; NEUTROPHILS % (AUTO) 63.2 %; PLT - PLATELET COUNT 54 10^3/uL (130-450); RED BLOOD COUNT 2.12 10^6/uL (4.70-6.10); RED CELL DISTRIBUTION WIDTH 17.3 % (12.0-15.0)
[2022-05-20 05:32] LABS: WHITE BLOOD COUNT 1.3 x10^3/uL (4.8-10.8)
[2022-05-20 05:33] LABS: ABNORMAL LYMPHS % (MANUAL) 0 %
[2022-05-20 05:35] LABS: ALBUMIN 3.6 g/dL (3.2-5.5); ALBUMIN/GLOBULIN RATIO 1.4 (1.0-2.2); BILIRUBIN,TOTAL 1.3 mg/dL (0.2-1.0); CALCIUM 8.6 mg/dL (8.5-10.3); CREATININE 0.6 mg/dL (0.6-1.2); MAGNESIUM 2.1 mg/dL (1.7-2.8); POTASSIUM 4.1 mmol/L (3.5-5.0); TOTAL PROTEIN 6.2 g/dL (6.7-8.2)
[2022-05-20 05:55] LABS: BAND NEUTROPHILS % (MANUAL) 3 %; BASOPHILS % (MANUAL) 1 %; EOSINOPHILS # (MANUAL) 0.1 10^3/uL (0-0.7); LYMPHOCYTES # (MANUAL) 0.4 10^3/uL (1.5-3.5); LYMPHOCYTES % (MANUAL) 27 %; NEUTROPHILS # (MANUAL) 0.8 10^3/uL (1.5-6.6)
[2022-05-20 05:56] LABS: PLATELET ESTIMATE, MANUAL DECREASED (<130,000) (NORMAL); PLATELET MORPHOLOGY NORMAL APPEARANCE (NORMAL)
[2022-05-20 05:57] LABS: DIFFERENTIAL COMMENT MANUAL DIFFERENTIAL; WBC MORPHOLOGY (MULTIPLE) NORMAL APPEARANCE (NORMAL)
[2022-05-20] MEDS: NICOTINE 14 MG PATCH TOP SCH (08:57)
[2022-05-20] MEDS: MULTIVITAMIN 10 ML, THIAMINE INJ 100 MG, FOLIC ACID INJ 1 MG in SODIUM CHLORIDE 0.9% 1,... IV SCH (09:15)
[2022-05-20] MEDS: PEGFILGRASTIM 6 MG/0.6 ML SYRINGE SUBQ ONE (09:53)
[2022-05-20] MEDS ORDERED: BUPIVACAINE 0.25% PF 10 ML VIAL ONE (12:10)
[2022-05-20] MEDS ORDERED: VANCOMYCIN 1 GM VIAL ONE (12:10)
[2022-05-20] MEDS ORDERED: LIDOCAINE MPF 2%-EPI 1:200000 20 ML VIAL ONE (12:11)
--- NOTE | 2022-05-20 12:35 | ANESTHESIA ---
Pre-Anesthesia VS, & Labs - Diagnosis LEFT HIP FRACTURE - Procedure HIP HEMIPROTHESIS Vital Signs: Temp Pulse Resp BP Pulse Ox O2 Flow Rate 37.2 C 76 16 104/49 L 94 05/20/22 10:55 05/20/22 10:55 05/20/22 10:55 05/20/22 10:55 05/20/22 10:55 Height: 5 ft 11 in Weight (kg): 66.5 kg Body Mass Index: 20.4 BMI Classification: Normal - NPO >8 hours - Lab Results Current Lab Results: Laboratory Tests 05/20/22 04:54: Sodium 136, Potassium 4.1, Chloride 103, Carbon Dioxide 24, Anion Gap 9.0, BUN 14, Creatinine 0.6, Estimated GFR (MDRD) 138, Glucose 120 H, Calcium 8.6, Phosphorus 4.0, Magnesium 2.1, Total Bilirubin 1.3 H, AST 16, ALT 16, Alkaline Phosphatase 69, Total Protein 6.2 L, Albumin 3.6, Globulin 2.6, Albumin/Globulin Ratio 1.4 05/20/22 04:54: WBC 1.3 L*, RBC 2.12 L, Hgb 7.9 L, Hct 23.4 L, MCV 110.4 H, MCH 37.3 H, MCHC 33.8, RDW 17.3 H, Plt Count 54 L, MPV 10.3, Neut # (Auto) Not Reportable, Lymph # (Auto) Not Reportable, [place] # (Auto) Not Reportable, Eos # (Auto) Not Reportable, Baso # (Auto) Not Reportable, Absolute Nucleated RBC Not Reportable, Total Counted 100, Band Neuts % (Manual) 3, Abnorm Lymph % (Manual) 0, Nucleated RBC % Not Reportable, Neutrophils # (Manual) 0.8 L, Lymphocytes # (Manual) 0.4 L, Monocytes # (Manual) 0.0, Eosinophils # (Manual) 0.1, Basophils # (Manual) 0.0, Differential Comment MANUAL DIFFERENTIAL, WBC Morphology NORMAL APPEARANCE, Platelet Estimate DECREASED (<130,000), Platelet Morphology NORMAL APPEARANCE, RBC Morph Micro Appear 1+ TEARDROP CELLS 05/19/22 18:26: PT 11.4, INR 1.0 05/19/22 14:38: Blood Type A POSITIVE, Antibody Screen NEGATIVE, Crossmatch IS Only See Detail 05/19/22 12:12: Blood Type Recheck A POSITIVE 05/19/22 12:12: Sodium 136, Potassium 4.0, Chloride 100 L, Carbon Dioxide 25, Anion Gap 11.0, BUN 23 H, Creatinine 0.7, Estimated GFR (MDRD) 115, Glucose 125 H, Calcium 9.5, Total Bilirubin 1.1 H, AST 19, ALT 18, Alkaline Phosphatase 65, Total Protein 6.9, Albumin 4.3, Globulin 2.6, Albumin/Globulin Ratio 1.7, Lipase 24 05/19/22 12:12: PT 11.7, INR 1.0 05/19/22 12:12: WBC 1.6 L*, RBC 2.18 L, Hgb 8.2 L, Hct 24.9 L, MCV 114.2 H, MCH 37.6 H, MCHC 32.9, RDW 13.7, Plt Count 82 L, MPV 11.8 H, Neut # (Auto) 0.9 L, Lymph # (Auto) 0.5 L, [place] # (Auto) 0.0, Eos # (Auto) 0.1, Baso # (Auto) 0.0, Absolute Nucleated RBC 0.00, Nucleated RBC % 0.0, Manual Slide Review Indicated, Platelet Estimate DECREASED (<130,000), Platelet Morphology NORMAL APPEARANCE, RBC Morph Micro Appear 2+ MACROCYTOSIS Fish Bones: 05/20/22 04:54 05/20/22 04:54 Home Medications and Allergies Home Medications: Ambulatory Orders Ascorbic Acid [Vitamin C] 1 tab PO DAILY 05/19/22 Cholecalciferol [Vitamin D3] 1 tab PO DAILY 05/19/22 Cyanocobalamin (Vitamin B-12) [Vitamin B12] 1 tab PO DAILY 05/19/22 Active Medications Acetaminophen (Acetaminophen 325 Mg Tablet) 650 mg PO Q4HR PRN PRN Reason: Pain 1 to 4, or Fever Chlordiazepoxide HCl (Chlordiazepoxide 5 Mg Capsule) 5 mg PO Q6HR PRN PRN Reason: Alcohol Withdrawal Multivitamins 10 ml/ Thiamine HCl 100 mg/ Folic Acid 1 mg/Sodium Chloride 1,011.2 mls @ 100 mls/hr IV DAILY YASH Last Infusion: 05/20/22 10:35 Dose: 0 mls/hr Morphine Sulfate (Morphine 2 Mg/Ml Carpuject) 2 mg IVP Q2HR PRN PRN Reason: Pain 8 to 10 Nicotine (Nicotine 14 Mg Patch) 1 patch TOP DAILY [facility] Last Admin: 05/20/22 08:57 Dose: 1 patch Ondansetron HCl (Ondansetron Odt 4 Mg Tablet) 4 mg TL Q6HR PRN PRN Reason: Nausea / Vomiting Ondansetron HCl (Ondansetron 4 Mg/2 Ml Vial) 4 mg IVP Q6HR PRN PRN Reason: Nausea / Vomiting Oxycodone HCl (Oxycodone 5 Mg Tablet) 5 mg PO Q4HR PRN PRN Reason: Pain 5 to 7 Last Admin: 05/20/22 05:56 Dose: 5 mg Sodium Chloride (Sodium Chloride Flush 0.9% 10 Ml Syringe) 10 ml IVP PRN PRN PRN Reason: NEEDED PER PROVIDER ORDERS Sodium Chloride (Sodium Chloride Flush 0.9% 10 Ml Syringe) 10 ml IVP 0100,0900,1700 [facility] Last Admin: 05/20/22 09:54 Dose: 10 ml Multivitamin [Multivitamins] 1 each PO DAILY 11/28/12 Aspirin [Aspirin EC] 81 mg PO DAILY 11/06/21 Atorvastatin Calcium 40 mg PO DAILY 11/23/21 Nicotine 21 mg Patch [Nicoderm] 1 each TOP ONCE 11/23/21 Ascorbic Acid [Vitamin C] 1 tab PO DAILY 05/19/22 Cholecalciferol [Vitamin D3] 1 tab PO DAILY 05/19/22 Cyanocobalamin (Vitamin B-12) [Vitamin B12] 1 tab PO DAILY 05/19/22 Allergies/Adverse Reactions: Allergies Allergy/AdvReac Type Severity Reaction Status Date / Time No Known Drug Allergies Allergy Verified 05/19/22 12:09 Anes History & Medical History - Anesthetic History Anesthesia Complications: reports: No previous complications Family history of Anesthesia Complications: Denies Family history of Malignant Hyperthermia: Denies - Medical History Cardiovascular: reports: None Pulmonary: reports: None Gastrointestinal: reports: None Urinary: reports: None Neuro: reports: None Musculoskeletal: reports: Osteoarthritis, Gout Endocrine/Autoimmune: reports: None Skin: reports: None Smoking Status: Current every day smoker Psychosocial: reports: Alcohol (DAILY) History of Cancer?: Yes Other Past Medical History: 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 alcohol abuse. tobacco abuse - Surgical History General: reports: Colonoscopy Eyes Ears Nose Throat (EENT): reports: Cataracts Orthopedic: reports: Arthroscopic surgery, Other Exam General: Alert, Oriented x3, Cooperative, No acute distress Dental: WNL, Poor dentition Mouth Openin Fingerbreadth Neck Mobility: Reduced Mallampati classification: II Thyromental Distance: 4-6 cm Mental/Cognitive Status: Alert/Oriented X3, Normal for patient Cognitive Status: Within normal limits Plan Anesthesia Type: General, Total IV, Fascia Iliaca Block Consent for Procedure(s) Verified and Reviewed: Yes Code Status: Attempt Resuscitation ASA classification: 3-Severe systemic disease Is this case an emergency?: No
[2022-05-20] MEDS ORDERED: ONDANSETRON 4 MG/2 ML VIAL ONE (12:53)
[2022-05-20] MEDS ORDERED: ROCURONIUM 50 MG/5 ML VIAL ONE ×2 (12:53→14:32)
[2022-05-20] MEDS ORDERED: PROPOFOL 200 MG/20 ML VIAL IVP ONE (12:53)
[2022-05-20] MEDS ORDERED: DEXAMETHASONE 4 MG/ML VIAL ONE (12:53)
[2022-05-20] MEDS ORDERED: TRANEXAMIC ACID 1,000 MG/10 ML VIAL ONE (12:53)
[2022-05-20] MEDS ORDERED: MIDAZOLAM 2 MG/2 ML VIAL ONE (12:54)
[2022-05-20] MEDS ORDERED: fentaNYL 100 MCG/2 ML VIAL ONE ×2 (12:54→13:58)
[2022-05-20] MEDS ORDERED: ceFAZolin 1 GM VIAL ONE (13:12)
[2022-05-20] MEDS ORDERED: DEXAMETHASONE 10 MG/ML VIAL ONE (13:52)
--- NOTE | 2022-05-20 13:57 | PROVIDER PROGRESS NOTE ---
Subjective - Prog Note Date Prog Note Date: 05/20/22 Prog Note Time: 13:56 - Subjective Subjective: He said it was a relatively comfortable night considering he could not roll over in his sleep. He was dreading falling asleep and then unconsciously rolling over to give him that agonizing pain in his hip. We had a cindy discussion regarding his risk for the surgery. I shared with him with the oncologist that. He told me that the oncologist had spoken to his son and to himself last night and he understood. But he did not want to delay surgery. As such I have read discussed the case with anesthesia and orthopedics today. Were all in agreement. Pharmacy is giving him pegylated colony-stimulating factor that would last 21 days after 1 injection. He is getting platelets today since he dropped to 52,000. He got 1 unit of packed cells last night and hemoglobin went from 8.2-7.9. We will be giving him another unit this morning. Current Medications - Current Medications Current Medications: Active Medications Acetaminophen (Acetaminophen 325 Mg Tablet) 650 mg PO Q4HR PRN PRN Reason: Pain 1 to 4, or Fever Chlordiazepoxide HCl (Chlordiazepoxide 5 Mg Capsule) 5 mg PO Q6HR PRN PRN Reason: Alcohol Withdrawal Multivitamins 10 ml/ Thiamine HCl 100 mg/ Folic Acid 1 mg/Sodium Chloride 1,011.2 mls @ 100 mls/hr IV DAILY [facility] Last Infusion: 05/20/22 10:35 Dose: 0 mls/hr Morphine Sulfate (Morphine 2 Mg/Ml Carpuject) 2 mg IVP Q2HR PRN PRN Reason: Pain 8 to 10 Nicotine (Nicotine 14 Mg Patch) 1 patch TOP DAILY [facility] Last Admin: 05/20/22 08:57 Dose: 1 patch Ondansetron HCl (Ondansetron Odt 4 Mg Tablet) 4 mg TL Q6HR PRN PRN Reason: Nausea / Vomiting Ondansetron HCl (Ondansetron 4 Mg/2 Ml Vial) 4 mg IVP Q6HR PRN PRN Reason: Nausea / Vomiting Oxycodone HCl (Oxycodone 5 Mg Tablet) 5 mg PO Q4HR PRN PRN Reason: Pain 5 to 7 Last Admin: 05/20/22 05:56 Dose: 5 mg Sodium Chloride (Sodium Chloride Flush 0.9% 10 Ml Syringe) 10 ml IVP PRN PRN PRN Reason: NEEDED PER PROVIDER ORDERS Sodium Chloride (Sodium Chloride Flush 0.9% 10 Ml Syringe) 10 ml IVP 0100,0900,1700 YASH Last Admin: 05/20/22 09:54 Dose: 10 ml Multivitamin [Multivitamins] 1 each PO DAILY 11/28/12 Aspirin [Aspirin EC] 81 mg PO DAILY 11/06/21 Atorvastatin Calcium 40 mg PO DAILY 11/23/21 Nicotine 21 mg Patch [Nicoderm] 1 each TOP ONCE 11/23/21 Ascorbic Acid [Vitamin C] 1 tab PO DAILY 05/19/22 Cholecalciferol [Vitamin D3] 1 tab PO DAILY 05/19/22 Cyanocobalamin (Vitamin B-12) [Vitamin B12] 1 tab PO DAILY 05/19/22 Objective - Vital Signs/Intake & Output Reviewed Vital Signs: Yes Vital Signs: Vital Signs x48h Temp Pulse Resp BP Pulse Ox 05/20/22 10:55 37.2 C 76 16 104/49 L 94 05/20/22 10:43 37.1 C 75 16 109/53 L 94 05/20/22 10:34 37.2 C 74 16 118/55 L 92 05/20/22 07:48 36.6 C 77 16 123/66 97 Intake & Output: Intake & Output 05/17/22 05/18/22 05/19/22 05/20/22 23:59 23:59 23:59 23:59 Intake Total 444 1133.334 Output Total 875 Balance 444 258.334 - Objective General Appearance: positive: Alert, Other (Fatigued appearing white male, looks older than stated age, alopecia) Eyes Bilateral: positive: PERRL, EOMI ENT: positive: No signs of dehydration Neck: positive: No JVD. negative: Stiff neck Respiratory: positive: No respiratory distress. negative: Wheezes, Rales, Rhonchi Cardiovascular: positive: Regular rate & rhythm Abdomen: positive: Non-tender, No organomegaly, Nml bowel sounds, No distention Skin: positive: Warm, Dry, Pallor Extremities: positive: No pedal edema, Other (Leg is shortened and externally rotated) Neurologic/Psychiatric: positive: Oriented x3, CN's nml (2-12), Motor nml - Lab Results Fish Bones: 05/20/22 04:54 05/20/22 04:54 Other Labs: Lab Results x24hrs 05/20/22 05/20/22 05/20/22 Range/Units 04:54 04:54 03:40 WBC 1.3 L* (4.8-10.8) x10^3/uL RBC 2.12 L (4.70-6.10) 10^6/uL Hgb 7.9 L (14.0-18.0) g/dL Hct 23.4 L (42.0-52.0) % MCV 110.4 H (80.0-94.0) fL MCH 37.3 H (27.0-31.0) pg MCHC 33.8 (32.0-36.0) g/dL RDW 17.3 H (12.0-15.0) % Plt Count 54 L (130-450) 10^3/uL MPV 10.3 (7.4-11.4) fL Neut # (Auto) Not Reportable Lymph # (Auto) Not Reportable [place] # (Auto) Not Reportable Eos # (Auto) Not Reportable Baso # (Auto) Not Reportable Absolute Nucleated RBC Not Reportable Total Counted 100 Band Neuts % (Manual) 3 (0 - 10) % Abnorm Lymph % (Manual) 0 % Nucleated RBC % Not Reportable Neutrophils # (Manual) 0.8 L (1.5-6.6) 10^3/uL Lymphocytes # (Manual) 0.4 L (1.5-3.5) 10^3/uL Monocytes # (Manual) 0.0 (0.0-1.0) 10^3/uL Eosinophils # (Manual) 0.1 (0-0.7) 10^3/uL Basophils # (Manual) 0.0 (0-0.1) 10^3/uL Differential Comment MANUAL DIFFERENTIAL WBC Morphology NORMAL APPEARANCE (NORMAL) Platelet Estimate DECREASED (<130,000) (NORMAL) Platelet Morphology NORMAL APPEARANCE (NORMAL) RBC Morph Micro Appear 1+ TEARDROP CELLS (NORMAL) PT (9.9-12.6) secs INR (0.8-1.2) Sodium 136 (135-145) mmol/L Potassium 4.1 (3.5-5.0) mmol/L Chloride 103 (101-111) mmol/L Carbon Dioxide 24 (21-32) mmol/L Anion Gap 9.0 (6-13) BUN 14 (6-20) mg/dL Creatinine 0.6 (0.6-1.2) mg/dL Estimated GFR (MDRD) 138 (>89) Glucose 120 H (70-100) mg/dL Calcium 8.6 (8.5-10.3) mg/dL Phosphorus 4.0 (2.5-4.6) mg/dL Magnesium 2.1 (1.7-2.8) mg/dL Total Bilirubin 1.3 H (0.2-1.0) mg/dL AST 16 (10-42) IU/L ALT 16 (10-60) IU/L Alkaline Phosphatase 69 (42-121) IU/L Total Protein 6.2 L (6.7-8.2) g/dL Albumin 3.6 (3.2-5.5) g/dL Globulin 2.6 (2.1-4.2) g/dL Albumin/Globulin Ratio 1.4 (1.0-2.2) Urine Color YELLOW Urine Clarity CLEAR (CLEAR) Urine pH 6.0 (5.0-7.5) PH Ur Specific [place] 1.025 (1.002-1.030) Urine Protein NEGATIVE (NEGATIVE) mg/dL Urine Glucose (UA) NEGATIVE (NEGATIVE) mg/dL Urine Ketones NEGATIVE (NEGATIVE) mg/dL Urine Occult Blood NEGATIVE (NEGATIVE) Urine Nitrite NEGATIVE (NEGATIVE) Urine Bilirubin NEGATIVE (NEGATIVE) Urine Urobilinogen 0.2 (NORMAL) (NORMAL) E.U./dL Ur Leukocyte Esterase NEGATIVE (NEGATIVE) Urine RBC None Seen (0-5) /HPF Urine WBC 0-3 (0-3) /HPF Ur Squamous Epith Cells NONE SEEN (<= Few) Urine Crystals 3-5 Calcium Oxalate /LPF Urine Bacteria None Seen (None Seen) /HPF Urine Culture Comments NOT INDICATED SARS-CoV-2 (PCR) Blood Type Blood Type Recheck Antibody Screen Crossmatch IS Only 05/19/22 05/19/22 05/19/22 Range/Units 18:26 14:38 13:20 WBC (4.8-10.8) x10^3/uL RBC (4.70-6.10) 10^6/uL Hgb (14.0-18.0) g/dL Hct (42.0-52.0) % MCV (80.0-94.0) fL MCH (27.0-31.0) pg MCHC (32.0-36.0) g/dL RDW (12.0-15.0) % Plt Count (130-450) 10^3/uL MPV (7.4-11.4) fL Neut # (Auto) Lymph # (Auto) [place] # (Auto) Eos # (Auto) Baso # (Auto) Absolute Nucleated RBC Total Counted Band Neuts % (Manual) (0 - 10) % Abnorm Lymph % (Manual) % Nucleated RBC % Neutrophils # (Manual) (1.5-6.6) 10^3/uL Lymphocytes # (Manual) (1.5-3.5) 10^3/uL Monocytes # (Manual) (0.0-1.0) 10^3/uL Eosinophils # (Manual) (0-0.7) 10^3/uL Basophils # (Manual) (0-0.1) 10^3/uL Differential Comment WBC Morphology (NORMAL) Platelet Estimate (NORMAL) Platelet Morphology (NORMAL) RBC Morph Micro Appear (NORMAL) PT 11.4 (9.9-12.6) secs INR 1.0 (0.8-1.2) Sodium (135-145) mmol/L Potassium (3.5-5.0) mmol/L Chloride (101-111) mmol/L Carbon Dioxide (21-32) mmol/L Anion Gap (6-13) BUN (6-20) mg/dL Creatinine (0.6-1.2) mg/dL Estimated GFR (MDRD) (>89) Glucose (70-100) mg/dL Calcium (8.5-10.3) mg/dL Phosphorus (2.5-4.6) mg/dL Magnesium (1.7-2.8) mg/dL Total Bilirubin (0.2-1.0) mg/dL AST (10-42) IU/L ALT (10-60) IU/L Alkaline Phosphatase (42-121) IU/L Total Protein (6.7-8.2) g/dL Albumin (3.2-5.5) g/dL Globulin (2.1-4.2) g/dL Albumin/Globulin Ratio (1.0-2.2) Urine Color Urine Clarity (CLEAR) Urine pH (5.0-7.5) PH Ur Specific [place] (1.002-1.030) Urine Protein (NEGATIVE) mg/dL Urine Glucose (UA) (NEGATIVE) mg/dL Urine Ketones (NEGATIVE) mg/dL Urine Occult Blood (NEGATIVE) Urine Nitrite (NEGATIVE) Urine Bilirubin (NEGATIVE) Urine Urobilinogen (NORMAL) E.U./dL Ur Leukocyte Esterase (NEGATIVE) Urine RBC (0-5) /HPF Urine WBC (0-3) /HPF Ur Squamous Epith Cells (<= Few) Urine Crystals /LPF Urine Bacteria (None Seen) /HPF Urine Culture Comments SARS-CoV-2 (PCR) NOT DETECTED Blood Type A POSITIVE Blood Type Recheck Antibody Screen NEGATIVE Crossmatch IS Only See Detail 05/19/22 Range/Units 12:12 WBC (4.8-10.8) x10^3/uL RBC (4.70-6.10) 10^6/uL Hgb (14.0-18.0) g/dL Hct (42.0-52.0) % MCV (80.0-94.0) fL MCH (27.0-31.0) pg MCHC (32.0-36.0) g/dL RDW (12.0-15.0) % Plt Count (130-450) 10^3/uL MPV (7.4-11.4) fL Neut # (Auto) Lymph # (Auto) [place] # (Auto) Eos # (Auto) Baso # (Auto) Absolute Nucleated RBC Total Counted Band Neuts % (Manual) (0 - 10) % Abnorm Lymph % (Manual) % Nucleated RBC % Neutrophils # (Manual) (1.5-6.6) 10^3/uL Lymphocytes # (Manual) (1.5-3.5) 10^3/uL Monocytes # (Manual) (0.0-1.0) 10^3/uL Eosinophils # (Manual) (0-0.7) 10^3/uL Basophils # (Manual) (0-0.1) 10^3/uL Differential Comment WBC Morphology (NORMAL) Platelet Estimate (NORMAL) Platelet Morphology (NORMAL) RBC Morph Micro Appear (NORMAL) PT (9.9-12.6) secs INR (0.8-1.2) Sodium (135-145) mmol/L Potassium (3.5-5.0) mmol/L Chloride (101-111) mmol/L Carbon Dioxide (21-32) mmol/L Anion Gap (6-13) BUN (6-20) mg/dL Creatinine (0.6-1.2) mg/dL Estimated GFR (MDRD) (>89) Glucose (70-100) mg/dL Calcium (8.5-10.3) mg/dL Phosphorus (2.5-4.6) mg/dL Magnesium (1.7-2.8) mg/dL Total Bilirubin (0.2-1.0) mg/dL AST (10-42) IU/L ALT (10-60) IU/L Alkaline Phosphatase (42-121) IU/L Total Protein (6.7-8.2) g/dL Albumin (3.2-5.5) g/dL Globulin (2.1-4.2) g/dL Albumin/Globulin Ratio (1.0-2.2) Urine Color Urine Clarity (CLEAR) Urine pH (5.0-7.5) PH Ur Specific [place] (1.002-1.030) Urine Protein (NEGATIVE) mg/dL Urine Glucose (UA) (NEGATIVE) mg/dL Urine Ketones (NEGATIVE) mg/dL Urine Occult Blood (NEGATIVE) Urine Nitrite (NEGATIVE) Urine Bilirubin (NEGATIVE) Urine Urobilinogen (NORMAL) E.U./dL Ur Leukocyte Esterase (NEGATIVE) Urine RBC (0-5) /HPF Urine WBC (0-3) /HPF Ur Squamous Epith Cells (<= Few) Urine Crystals /LPF Urine Bacteria (None Seen) /HPF Urine Culture Comments SARS-CoV-2 (PCR) Blood Type Blood Type Recheck A POSITIVE Antibody Screen Crossmatch IS Only Assessment/Plan - Problem List (1) Femur fracture, left Impression: This seems to be a fracture due to osteoporosis. He was due to get Zometa but was awaiting dental evaluation until that could be given. Films do not confirm that he has metastatic disease to the femur. Extensive discussions held between myself, oncology, anesthesia, and orthopedic surgery. As well as with the patient to update him on all of these discussions. Plan: Move forward with surgery today I have let our care conference team know that the son and patient do not want him to go to a [facility] facility. Their goal is to go home on postop day 3 or 4 with home health PT/OT. And then follow-up with outpatient PT/OT. Qualifiers: Encounter type: initial encounter Femur location: intertrochanteric Fracture type: closed Fracture alignment: displaced Qualified Code(s): S72.142A - Displaced intertrochanteric fracture of left femur, initial encounter for closed fracture (2) Pre-op evaluation Conclusion/Plan: With his [employer] NS[employer], he is at 11.9% risk of serious complication, and 13.6% risk of any complication. 3.6% risk of pneumonia, and an 8.2% risk of readmission. He is a higher than average risk with regards to and having to return to the OR. It is anticipated he will need discharge to a [facility] facility for rehab But he and his son have both told us that he would like to go home instead. I let PT know this and we will gauge how his strength and endurance is at that time. Revised cardiac index is 0 and this puts him at a class I for a perioperative cardiac event. Case discussed with anesthesia Yesterday and today. 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 Anesthesia has already looked at the films. The collapse from the cancer appears to be stable. Even though it is in the neural foramina, there are no symptoms. She will take that into account when she puts the patient to sleep tomorrow. Anesthesia will be general anesthesia and not epidural secondary to platelets. Today he will be getting platelets, another unit of blood as he goes to surgery. (4) Pancytopenia due to antineoplastic chemotherapy Conclusion/Plan: Oncology was asking us to delay surgery for up to a week. After discussion between us all we have decided not to do that. Patient was included in this conversation as was his son and they do not want to wait. He is getting an injection of colony-stimulating factor today for the neutropenia. I will trans fuse him as needed. (5) Tobacco abuse Conclusion/Plan: nicotine patch (6) alcohol abuse I ordered a banana bag last night. When he gets out of surgery and we will be ordering folic acid, thiamine, and a vitamin. He states he has never had withdrawal. I have ordered Librium as needed just in case.
[2022-05-20] MEDS ORDERED: SUGAMMADEX 200 MG/2 ML VIAL IVP ONE (14:48)
[2022-05-20] MEDS ORDERED: ROPIVACAINE 0.5% PF 20 ML VIAL ONE (14:59)
--- NOTE | 2022-05-20 15:06 | OPERATIVE REPORT ---
Operative Report - General Admit Date: 05/19/22 Procedure Date: 05/20/22 Planned Procedure: Hemiarthroplasty left hip Pre-Op Diagnosis: Displaced femoral neck fracture left hip Procedure Performed: Hemiarthroplasty left hip using [employer] Synergy high offset #16 femoral stem, bipolar 51 mm head, -3 mm, noncemented Post Op Diagnosis: Same as preoperative diagnosis - Procedure Note Primary Surgeon: Giuseppe Brothers MD Secondary Surgeon: Arabella CROCKER Anesthesia Provider: Wendi Barth CRNA Anesthesia Technique: General ET tube, Regional block Estimated Blood Loss (mL): 200 Indications: This is a 61-year-old gentleman who took a fall from standing height, ground- level, fell on the left side of the day of admission. He had pain and inability to bear weight on left leg. His pain was well localized to the upper left thigh. He has no other areas of pain. He denied chest pain, shortness of breath, syncope, or loss of consciousness associated with fall. He has not had any previous problems with left hip. He does have multiple medical problems. These have been well documented and include metastatic squamous cell carcinoma, pancytopenia, chronic cigarette smoking and use of alcohol, weight loss, debility of chronic disease, and recent administration of chemotherapy approximately 6 days ago. His exam showed marked pain with any attempted movement of left hip, shortening and external rotation deformity of left leg, no hematoma, no neurovascular deficit, skin intact. His x-rays showed a completely displaced femoral neck fracture with shortening at the fracture site and varus angulation and rotational deformity. He was admitted to the hospital service for comanaged care including internal medicine, orthopedic surgery, anesthesia and oncology consult with his oncologist. It was felt by the team that stabilization of his hip fracture and mobilization of the patient would be helpful. However, no matter how this patient is treated, with or without surgery or dilating surgery, he is at significant risk for morbidity and mortality including bleeding, infection, cardiovascular, cerebrovascular problems and pulmonary embolism. He is at high risk for deep venous thrombosis because of hip fracture and malignancy. He does seem to be responding to his chemotherapy for the treatment of his malignancy. The plan is to avoid chemical anticoagulation per hospitalist as he is at high risk for b leeding with low platelets. He will receive intermittent pneumatic compression to reduce deep venous thrombosis and mobilization. He did receive 2 units of packed red blood cells and did receive platelet transfusion. He was given growth factors to stimulate blood cell production per oncology. The patient was in agreement to the surgery. An informed consent was obtained prior to surgery. Findings: There was a completely displaced femoral neck fracture left hip. I did not see any overt sign of malignancy about the hip joint. The articular cartilage was intact to acetabulum and most of the femoral head. Complications: None - Other Other Information/Narrative: The patient was brought to the operating room, given a general anesthetic. The patient was placed on the operating table initially supine, then turned to a lateral decubitus position with the left hip facing superiorly. The patient was secured in the lateral decubitus position using the pegboard and PEG holders to pelvis and torso. The left hip and lower extremity were prepped and draped in a sterile manner in the usual fashion. A timeout procedure was performed by the entire operating room team and all were in agreement. A longitudinal incision was made over the lateral aspect of the left hip, centered about the greater trochanter. The skin, subcutaneous tissue and fascia calixto were split. A self-retaining retractor was inserted. The myotendinous junction of the anterior one third of the gluteus medius oblique fibers was released. The leg was adducted and externally rotated. The anterior hip capsule was exposed split longitudinally and then divided transversely in a T-shaped fashion. Part of the anterior hip capsule was excised. The femoral head was removed using a corkscrew and bone hook, measured 51 mm in diameter with calipers. The acetabulum was cleared of some small capsular fracture fragments. The left leg was placed in an anterior pocket. The femoral canal was opened with a box osteotome, then serial reaming and then broaching up to a 16 mm broach. The broaching was done in 1 mm increments. The broach was inserted with slight anteversion. Calcar reaming was performed with reamer. A 16mm broach and 51 mm head, trial reduction performed with stable hip and good leg length tension. A permanent 51 mm bipolar - 3 head was then impacted on the previously inserted femoral stem/trunnion,16 High offset Synergy stem, reduced, taken through range of motion is found to have good motion and good stability as well as leg length tension. The femoral component had excellent stability to push pull and rotation. The wound was irrigated 3 minutes with dilute Betadine followed by saline irrigation, vancomycin 2 gram powder. The anterior capsule and gluteus medius were both repaired with #1 strata fix suture, fascia calixto closed with #1 strata fix suture, subcutaneous tissue closed with 2 O strata fix suture, subcuticular closure with 3 O strata fix suture. Finally, Dermabond was applied to the skin, silver impregnated dressing after the Dermabond had hardened. The patient received 2 g of Ancef and 1 g of tranxeamic acid, tolerated procedure well. Physician assistant store leader was utilized, medically necessary, to provide the necessary exposure, protection of vital structures, facilitate with dislocation and reduction of the hip, wound closure and dressing.
[2022-05-20] MEDS ORDERED: LACTATED RINGERS 1,000 ML IV ONE ×2 (15:40→16:00)
[2022-05-20] MEDS ORDERED: fentaNYL 100 MCG/2 ML VIAL IVP PRN (16:01)
[2022-05-20] MEDS ORDERED: NALOXONE 0.4 MG/ML VIAL IVP PRN (16:01)
[2022-05-20] MEDS ORDERED: HYDROmorphone 0.5 MG/0.5 ML SYRINGE IVP PRN (16:01)
[2022-05-20] MEDS ORDERED: ePHEDrine 50 MG/ML VIAL IVP PRN (16:01)
[2022-05-20] MEDS ORDERED: ONDANSETRON 4 MG/2 ML VIAL IVP PRN (16:01)
[2022-05-20] MEDS ORDERED: ATROPINE ABBOJECT 1 MG/10 ML SYRINGE IVP PRN (16:01)
[2022-05-20] MEDS ORDERED: MORPHINE 2 MG/ML CARPUJECT IVP PRN (16:01)
--- NOTE | 2022-05-20 16:11 | ANESTHESIA POST OP EVALUATION ---
Anesthesia Post Eval - Post Anesthesia Eval Vitals: Last Vital Signs Temp 37.3 C 05/20/22 15:38 Pulse 84 05/20/22 16:05 Resp 23 05/20/22 16:05 BP 125/68 05/20/22 16:05 Pulse Ox 100 05/20/22 16:05 O2 Flow Rate CV Function Including HR & BP: Stable Pain Control: Satisfactory Nausea & Vomiting: Negative Mental Status: Baseline Respiratory Status: Airway Patent Hydration Status: Satisfactory Anesthesia Complications: None
[2022-05-20] MEDS ORDERED: LACTATED RINGERS 1,000 ML IV SCH (17:00)
--- NOTE | 2022-05-20 17:01 | XRAY Report ---
PROCEDURE: Hip w/Pelvis 1V LT INDICATIONS: Post operative imaging TECHNIQUE: AP pelvis with lateral view(s) of the left hip(s). COMPARISON: None. FINDINGS: Bones: Bipolar left hemiarthroplasty in appropriate position. Old healed right inferior pubic rami fr acture right proximal femur unremarkable. Pelvic ring intact. Procedural soft tissue air noted Soft tissues: The visualized bowel gas pattern is normal. No suspicious soft tissue calcifications. IMPRESSION: Left femoral arthroplasty in good position Reviewed by: Jesús Levine MD on 05/20/2022 4:00 PM [place] Approved by: Jesús Levine MD on 05/20/2022 4:00 PM [place] Station ID: [id number]
[2022-05-20] MEDS: CEFAZOLIN 2G/50ML 0.9% NS 2 GM/50 ML BAG IV SCH (21:36)
[2022-05-21] MEDS: SODIUM CHLORIDE FLUSH 0.9% 10 ML SYRINGE IVP SCH ×3 (01:41→17:29)
[2022-05-21 05:25] LABS: BASOPHILS % (AUTO) 0.3 %; HCT - HEMATOCRIT 23.2 % (42.0-52.0); HGB - HEMOGLOBIN 7.7 g/dL (14.0-18.0); MEAN CORPUSCULAR HEMOGLOBIN 35.5 pg (27.0-31.0); MEAN CORPUSCULAR HGB CONC 33.2 g/dL (32.0-36.0); MEAN CORPUSCULAR VOLUME 106.9 fL (80.0-94.0); MEAN PLATELET VOLUME 11.4 fL (7.4-11.4); MONOCYTES % (AUTO) 2.3 %; NEUTROPHILS % (AUTO) 73.4 %; PLT - PLATELET COUNT 96 10^3/uL (130-450); RED BLOOD COUNT 2.17 10^6/uL (4.70-6.10); RED CELL DISTRIBUTION WIDTH 19.3 % (12.0-15.0); WHITE BLOOD COUNT 3.1 x10^3/uL (4.8-10.8)
[2022-05-21 05:36] LABS: CALCIUM 8.6 mg/dL (8.5-10.3); CREATININE 0.6 mg/dL (0.6-1.2)
[2022-05-21 05:39] LABS: ABNORMAL LYMPHS % (MANUAL) 0 %
[2022-05-21] MEDS ORDERED: CEFAZOLIN 2G/50ML 0.9% NS 2 GM/50 ML BAG IV ONE (05:42)
[2022-05-21] MEDS: CEFAZOLIN 2G/50ML 0.9% NS 2 GM/50 ML BAG IV SCH (05:51)
[2022-05-21 05:58] LABS: BAND NEUTROPHILS % (MANUAL) 20 %; LYMPHOCYTES # (MANUAL) 0.4 10^3/uL (1.5-3.5); LYMPHOCYTES % (MANUAL) 14 %; METAMYELOCYTES % (MANUAL) 1 %; MYELOCYTES % (MANUAL) 1 %; NEUTROPHILS # (MANUAL) 2.6 10^3/uL (1.5-6.6)
[2022-05-21 05:59] LABS: DIFFERENTIAL COMMENT MANUAL DIFFERENTIAL; PLATELET ESTIMATE, MANUAL DECREASED (<130,000) (NORMAL); WBC MORPHOLOGY (MULTIPLE) 1+ TOXIC GRANULATION (NORMAL)
[2022-05-21] MEDS: oxyCODONE 5 MG TABLET PO PRN ×4 (06:29→21:35)
[2022-05-21] MEDS: NICOTINE 14 MG PATCH TOP SCH (08:42)
[2022-05-21] MEDS: MULTIVITAMIN 10 ML, THIAMINE INJ 100 MG, FOLIC ACID INJ 1 MG in SODIUM CHLORIDE 0.9% 1,... IV SCH (08:48)
--- NOTE | 2022-05-21 10:06 | PROVIDER PROGRESS NOTE ---
Subjective - General Admit Date: 05/19/22 Procedure Date: 05/20/22 Post Op Days: 1 - Other Other Information/Narrative: The patient is up sitting and indicates that his pain is improved compared to preoperative. His pain appears to be well controlled at this time. He denies chest pain, shortness of breath, nausea or vomiting. His appetite is improving. He is able to move in bed now without the pain that he was having prior to surgery. Objective - Patient Data Vital Signs: Vital Signs x48h Temp Pulse Resp BP Pulse Ox 05/21/22 07:34 36.7 C 76 14 99/57 L 95 Weight: Weight 05/19/22 05/20/22 05/21/22 23:59 23:59 23:59 Weight (kg) 66.5 kg 66.5 kg Intake & Output: Intake and Output Totals x24h 05/19/22 05/20/22 05/21/22 23:59 23:59 23:59 Intake Total 444 7695.167 6932.866 Output Total 2800 450 Balance 444 -3788.755 1450.866 - Lab Results Lab Results: 05/21/22 04:44 05/21/22 04:44 Other Lab Results: Lab Results x24hrs 05/21/22 05/21/22 05/19/22 Range/Units 04:44 04:44 14:38 WBC 3.1 L (4.8-10.8) x10^3/uL RBC 2.17 L (4.70-6.10) 10^6/uL Hgb 7.7 L (14.0-18.0) g/dL Hct 23.2 L (42.0-52.0) % MCV 106.9 H (80.0-94.0) fL MCH 35.5 H (27.0-31.0) pg MCHC 33.2 (32.0-36.0) g/dL RDW 19.3 H (12.0-15.0) % Plt Count 96 L (130-450) 10^3/uL MPV 11.4 (7.4-11.4) fL Neut # (Auto) Not Reportable Lymph # (Auto) Not Reportable [place] # (Auto) Not Reportable Eos # (Auto) Not Reportable Baso # (Auto) Not Reportable Absolute Nucleated RBC Not Reportable Total Counted 100 Band Neuts % (Manual) 20 H (0 - 10) % Abnorm Lymph % (Manual) 0 % Metamyelocytes % 1 H ( - 0) % Myelocytes % 1 H ( - 0) % Nucleated RBC % Not Reportable Neutrophils # (Manual) 2.6 (1.5-6.6) 10^3/uL Lymphocytes # (Manual) 0.4 L (1.5-3.5) 10^3/uL Monocytes # (Manual) 0.0 (0.0-1.0) 10^3/uL Eosinophils # (Manual) 0.0 (0-0.7) 10^3/uL Basophils # (Manual) 0.0 (0-0.1) 10^3/uL Differential Comment MANUAL DIFFERENTIAL WBC Morphology 1+ TOXIC GRANULATION (NORMAL) Platelet Estimate DECREASED (<130,000) (NORMAL) RBC Morph Micro Appear 1+ OVALOCYTES (NORMAL) Sodium 135 (135-145) mmol/L Potassium 4.0 (3.5-5.0) mmol/L Chloride 101 (101-111) mmol/L Carbon Dioxide 24 (21-32) mmol/L Anion Gap 10.0 (6-13) BUN 11 (6-20) mg/dL Creatinine 0.6 (0.6-1.2) mg/dL Estimated GFR (MDRD) 138 (>89) Glucose 140 H (70-100) mg/dL Calcium 8.6 (8.5-10.3) mg/dL Blood Type A POSITIVE Antibody Screen NEGATIVE Crossmatch IS Only See Detail - Current Medications Current Medications: Current Medications Generic Name Dose Route Start Last Admin Trade Name Pachecoq PRN Reason Stop Dose Admin Multivitamins 10 ml/ Thiamine 1,011.2 mls @ 100 mls/hr 05/20/22 09:00 06/01 08:48 HCl 100 mg/ Folic Acid 1 mg/ IV 100 mls/hr Sodium Chloride DAILY YASH Administration Nicotine 1 patch 05/19/22 09:00 05/21/22 08:42 Nicotine 14 Mg Patch TOP 1 patch DAILY YASH Administration Oxycodone HCl 5 mg 05/19/22 13:29 05/21/22 06:29 Oxycodone 5 Mg Tablet PO 5 mg Q4HR PRN Administration Pain 5 to 7 Sodium Chloride 10 ml 05/19/22 13:29 05/21/22 05:51 Sodium Chloride Flush 0.9% 10 Ml Syringe IVP 10 ml PRN PRN Administration NEEDED PER PROVIDER ORDERS Sodium Chloride 10 ml 05/19/22 17:00 05/21/22 08:48 Sodium Chloride Flush 0.9% 10 Ml Syringe IVP 10 ml 0100,0900,1700 YASH Administration - Physical Exam Wound/Incisions: positive: Dressing dry and intact Neurologic/Psychiatric: positive: Oriented x3 Comments/Other: Patient is alert and oriented, no acute distress. He sitting upright in bed comfortably and is able to converse with me comfortably. His left leg shows no clinical deformity. I am able to move the left leg much better today without much pain. His dressing over the left hip incision is clean and dry, no sign of drainage, no sign of any hematoma or ecchymosis. His neurovascular is intact to left lower extremity, femoral and sciatic nerve function intact Impression/Plan - Problem List Problem List: 1. Status post left hip hemiarthroplasty for displaced femoral neck fracture left hip 2. Multiple comorbidities, main issue, metastatic cancer with pancytopenia associated with chronic disease and chemotherapy Physical therapy and occupational therapy have been ordered. He may ambulate with a walker, weightbearing as tolerated on left leg. He has sequential compression device to lower extremity and has been advised to do ankle pumps frequently while in bed, every hour while awake. Overall, considering all his issues medically, he seems to be doing well so far. He is receiving comanaged care with orthopedist, hospitalist and oncologist as needed. Chemical anticoagulation with medication is being withheld because of his high risk of potential bleeding, hematoma formation at surgical site which can lead to infection. There is risk of deep venous thrombosis which is being managed with sequential compression device, ankle pumps and mobilization of patient. This decision regarding anticoagulation was with mutual discussion between myself and hospitalist. The other question is whether to continue oral antibiotics for an additional week. There is evidence, but not high-quality that 1 week of postoperative oral antibiotics can be helpful in reducing postoperative infection in very high risk patients. I will discuss this with her hospitalist, Dr Thompson. I would most likely recommend Keflex for a week if she agrees
[2022-05-21] MEDS ORDERED: BEER 355 ML BOTTLE PO PRN (15:50)
--- NOTE | 2022-05-21 17:24 | PROVIDER PROGRESS NOTE ---
Subjective - Prog Note Date Prog Note Date: 05/21/22 Prog Note Time: 17:21 - Subjective Subjective: He feels good. The pain is so much better with the surgery. The only complaint is food. He just does not like it much here. He is working with a cafeteria. Family is bringing him food from the outside. Objective - Vital Signs/Intake & Output Reviewed Vital Signs: Yes Vital Signs: Vital Signs x48h Temp Pulse Pulse Resp BP BP Pulse Ox 05/21/22 15:44 36.6 C 79 18 119/71 99 05/21/22 10:33 125 H 115/76 Pulse Ox 05/21/22 15:44 05/21/22 10:33 90 L Intake & Output: Intake & Output 05/18/22 05/19/22 05/20/22 05/21/22 23:59 23:59 23:59 23:59 Intake Total 444 1657.029 8478.866 Output Total 2800 450 Balance 444 -8815.843 0040.866 - Objective General Appearance: positive: No acute distress, Alert, Other (Comfortable. White male who looks older than stated age, generalized alopecia.) Eyes Bilateral: positive: PERRL, EOMI ENT: positive: No signs of dehydration Neck: positive: No JVD Respiratory: positive: No respiratory distress. negative: Wheezes, Rales, Rhonchi Cardiovascular: positive: Regular rate & rhythm Abdomen: positive: Non-tender, No organomegaly, Nml bowel sounds, No distention Skin: positive: Warm, Dry, Pallor Extremities: positive: No pedal edema Neurologic/Psychiatric: positive: Oriented x3, CN's nml (2-12), Motor nml - Lab Results Fish Bones: 05/21/22 04:44 05/21/22 04:44 Other Labs: Lab Results x24hrs 05/21/22 05/21/22 05/19/22 Range/Units 04:44 04:44 14:38 WBC 3.1 L (4.8-10.8) x10^3/uL RBC 2.17 L (4.70-6.10) 10^6/uL Hgb 7.7 L (14.0-18.0) g/dL Hct 23.2 L (42.0-52.0) % MCV 106.9 H (80.0-94.0) fL MCH 35.5 H (27.0-31.0) pg MCHC 33.2 (32.0-36.0) g/dL RDW 19.3 H (12.0-15.0) % Plt Count 96 L (130-450) 10^3/uL MPV 11.4 (7.4-11.4) fL Neut # (Auto) Not Reportable Lymph # (Auto) Not Reportable [place] # (Auto) Not Reportable Eos # (Auto) Not Reportable Baso # (Auto) Not Reportable Absolute Nucleated RBC Not Reportable Total Counted 100 Band Neuts % (Manual) 20 H (0 - 10) % Abnorm Lymph % (Manual) 0 % Metamyelocytes % 1 H ( - 0) % Myelocytes % 1 H ( - 0) % Nucleated RBC % Not Reportable Neutrophils # (Manual) 2.6 (1.5-6.6) 10^3/uL Lymphocytes # (Manual) 0.4 L (1.5-3.5) 10^3/uL Monocytes # (Manual) 0.0 (0.0-1.0) 10^3/uL Eosinophils # (Manual) 0.0 (0-0.7) 10^3/uL Basophils # (Manual) 0.0 (0-0.1) 10^3/uL Differential Comment MANUAL DIFFERENTIAL WBC Morphology 1+ TOXIC GRANULATION (NORMAL) Platelet Estimate DECREASED (<130,000) (NORMAL) RBC Morph Micro Appear 1+ OVALOCYTES (NORMAL) Sodium 135 (135-145) mmol/L Potassium 4.0 (3.5-5.0) mmol/L Chloride 101 (101-111) mmol/L Carbon Dioxide 24 (21-32) mmol/L Anion Gap 10.0 (6-13) BUN 11 (6-20) mg/dL Creatinine 0.6 (0.6-1.2) mg/dL Estimated GFR (MDRD) 138 (>89) Glucose 140 H (70-100) mg/dL Calcium 8.6 (8.5-10.3) mg/dL Blood Type A POSITIVE Antibody Screen NEGATIVE Crossmatch IS Only See Detail Assessment/Plan - Problem List (1) Femur fracture, left Impression: This seems to be a fracture due to osteoporosis. He was due to get Zometa but was awaiting dental evaluation until that could be given. Films do not confirm that he has metastatic disease to the femur. Extensive discussions held between myself, oncology, anesthesia, and orthopedic surgery. As well as with the patient to update him on all of these discussions. He opted to go for surgery. Today's postoperative day #1. No severe anemia that is new. Pain is controlled. His goal is still to get home. Plan continue work with physical therapy and Occupational Therapy. Goal is to get him discharge on the or with home health PT and OT Qualifiers: Encounter type: initial encounter Femur location: intertrochanteric Fracture type: closed Fracture alignment: displaced Qualified Code(s): S72.142A - Displaced intertrochanteric fracture of left femur, initial encounter for closed fracture (2) Pre-op evaluation Conclusion/Plan: With his [employer] NSQIP, he is at 11.9% risk of serious complication, and 13.6% risk of any complication. 3.6% risk of pneumonia, and an 8.2% risk of readmission. He is a higher than average risk with regards to and having to return to the OR. It is anticipated he will [facility] But he and his son have both told us that he would like to go home instead. I let PT know this and we will gauge how his strength and endurance is at that time. Revised cardiac index is 0 and this puts him at a class I for a perioperative cardiac event. These will be held in mind as he progresses through his acute episode. So far so good with no new complications today. 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 Anesthesia has already looked at the films. The collapse from the cancer appears to be stable. Even though it is in the neural foramina, there are no symptoms. In summary he has received 2 units of blood, 1 pack of platelets. Stable so far. No signs and symptoms of bleeding's.. (4) Pancytopenia due to antineoplastic chemotherapy Conclusion/Plan: Oncology was asking us to delay surgery for up to a week. After discussion between us all we have decided not to do that. Patient was included in this conversation as was his son and they do not want to wait. He received a pegylated subcu injection of colony-stimulating factor. He is responded to that and that his white cell count is above 3 today. Platelets are stable. (5) Tobacco abuse Conclusion/Plan: nicotine patch (6) alcohol abuse A banana bag was ordered on admission. He was continued today but I will switch him over to p.o. vitamins. The patient is also stating that he has no intention of ever stopping drinking. He would like a beer with his meals. I have ordered that.
[2022-05-21] MEDS: CHOLECALCIFEROL 25 MCG TABLET PO SCH (17:28)
[2022-05-21] MEDS: CALCIUM CARBONATE CHEW 500 MG TABLET PO SCH (17:29)
[2022-05-22] MEDS: SODIUM CHLORIDE FLUSH 0.9% 10 ML SYRINGE IVP SCH ×3 (00:21→16:11)
[2022-05-22 04:44] LABS: BASOPHILS % (AUTO) 0.9 %; EOSINOPHILS % (AUTO) 4.1 %; HCT - HEMATOCRIT 21.9 % (42.0-52.0); HGB - HEMOGLOBIN 7.2 g/dL (14.0-18.0); LYMPHOCYTES % (AUTO) 27.4 %; MEAN CORPUSCULAR HGB CONC 32.9 g/dL (32.0-36.0); MEAN CORPUSCULAR VOLUME 109.5 fL (80.0-94.0); MEAN PLATELET VOLUME 11.6 fL (7.4-11.4); NEUTROPHILS % (AUTO) 52.1 %; PLT - PLATELET COUNT 81 10^3/uL (130-450); RED CELL DISTRIBUTION WIDTH 19.1 % (12.0-15.0); WHITE BLOOD COUNT 2.2 x10^3/uL (4.8-10.8)
[2022-05-22 04:48] LABS: ABNORMAL LYMPHS % (MANUAL) 0 %
[2022-05-22 04:49] LABS: CALCIUM 8.3 mg/dL (8.5-10.3); CREATININE 0.6 mg/dL (0.6-1.2); POTASSIUM 3.7 mmol/L (3.5-5.0)
[2022-05-22 05:07] LABS: BAND NEUTROPHILS % (MANUAL) 13 %; LYMPHOCYTES # (MANUAL) 0.7 10^3/uL (1.5-3.5); LYMPHOCYTES % (MANUAL) 31 %; MONOCYTES # (MANUAL) 0.1 10^3/uL (0.0-1.0); MYELOCYTES % (MANUAL) 1 %; NEUTROPHILS # (MANUAL) 1.4 10^3/uL (1.5-6.6)
[2022-05-22 05:08] LABS: DIFFERENTIAL COMMENT MANUAL DIFFERENTIAL; PLATELET ESTIMATE, MANUAL DECREASED (<130,000) (NORMAL)
[2022-05-22] MEDS: NICOTINE 14 MG PATCH TOP SCH (09:09)
[2022-05-22] MEDS: THIAMINE 100 MG TABLET PO SCH (09:09)
[2022-05-22] MEDS: CALCIUM CARBONATE CHEW 500 MG TABLET PO SCH (09:09)
[2022-05-22] MEDS: CHOLECALCIFEROL 25 MCG TABLET PO SCH (09:09)
[2022-05-22] MEDS: oxyCODONE 5 MG TABLET PO PRN ×2 (09:16→14:04)
--- NOTE | 2022-05-22 10:37 | PROVIDER PROGRESS NOTE ---
Subjective - General Admit Date: 05/19/22 Procedure Date: 05/20/22 Post Op Days: 2 - Review of Systems Wound/Incisions: positive: Dressing dry and intact - Other Other Information/Narrative: He is day 2 postop left hip hemiarthroplasty. His pain seems to be under very good control and continues to improve. He has had physical therapy and seems to be doing well. He denies chest pain, shortness of breath, nausea or vomiting. His appetite seems to be satisfactory and improving. Objective - Patient Data Vital Signs: Vital Signs x48h Temp Pulse Resp BP Pulse Ox 05/22/22 07:42 36.9 C 73 15 97/53 L 95 Weight: Weight 05/20/22 05/21/22 05/22/22 23:59 23:59 23:59 Weight (kg) 66.5 kg Intake & Output: Intake and Output Totals x24h 05/20/22 05/21/22 05/22/22 23:59 23:59 23:59 Intake Total 4010.137 2061.066 240 Output Total 2800 1200 250 Balance -9271.401 6837.066 -10 - Lab Results Lab Results: 05/22/22 04:27 05/22/22 04:27 Other Lab Results: Lab Results x24hrs 05/22/22 05/22/22 Range/Units 04:27 04:27 WBC 2.2 L (4.8-10.8) x10^3/uL RBC 2.00 L (4.70-6.10) 10^6/uL Hgb 7.2 L (14.0-18.0) g/dL Hct 21.9 L (42.0-52.0) % MCV 109.5 H (80.0-94.0) fL MCH 36.0 H (27.0-31.0) pg MCHC 32.9 (32.0-36.0) g/dL RDW 19.1 H (12.0-15.0) % Plt Count 81 L (130-450) 10^3/uL MPV 11.6 H (7.4-11.4) fL Neut # (Auto) Not Reportable Lymph # (Auto) Not Reportable [place] # (Auto) Not Reportable Eos # (Auto) Not Reportable Baso # (Auto) Not Reportable Absolute Nucleated RBC Not Reportable Total Counted 100 Band Neuts % (Manual) 13 H (0 - 10) % Abnorm Lymph % (Manual) 0 % Myelocytes % 1 H ( - 0) % Nucleated RBC % Not Reportable Neutrophils # (Manual) 1.4 L (1.5-6.6) 10^3/uL Lymphocytes # (Manual) 0.7 L (1.5-3.5) 10^3/uL Monocytes # (Manual) 0.1 (0.0-1.0) 10^3/uL Eosinophils # (Manual) 0.0 (0-0.7) 10^3/uL Basophils # (Manual) 0.0 (0-0.1) 10^3/uL Differential Comment MANUAL DIFFERENTIAL Platelet Estimate DECREASED (<130,000) (NORMAL) RBC Morph Micro Appear 2+ HYPOCHROMASIA (NORMAL) Sodium 138 (135-145) mmol/L Potassium 3.7 (3.5-5.0) mmol/L Chloride 105 (101-111) mmol/L Carbon Dioxide 27 (21-32) mmol/L Anion Gap 6.0 (6-13) BUN 12 (6-20) mg/dL Creatinine 0.6 (0.6-1.2) mg/dL Estimated GFR (MDRD) 138 (>89) Glucose 105 H (70-100) mg/dL Calcium 8.3 L (8.5-10.3) mg/dL - Current Medications Current Medications: Current Medications Generic Name Dose Route Start Last Admin Trade Name Freq PRN Reason Stop Dose Admin Calcium Carbonate/Glycine 500 mg 05/21/22 17:00 05/22/22 09:09 Calcium Carbonate Chew 500 Mg Tablet PO 500 mg DAILY YASH Administration Chlordiazepoxide HCl 5 mg 05/19/22 18:14 05/21/22 21:29 Chlordiazepoxide 5 Mg Capsule PO 5 mg Q6HR PRN Administration Alcohol Withdrawal Cholecalciferol 25 mcg 05/21/22 17:00 05/22/22 09:09 Cholecalciferol 25 Mcg Tablet PO 25 mcg DAILY YASH Administration Nicotine 1 patch 05/19/22 09:00 05/22/22 09:09 Nicotine 14 Mg Patch TOP 1 patch DAILY YASH Administration Oxycodone HCl 5 mg 05/19/22 13:29 05/22/22 09:16 Oxycodone 5 Mg Tablet PO 5 mg Q4HR PRN Administration Pain 5 to 7 Sodium Chloride 10 ml 05/19/22 13:29 05/21/22 05:51 Sodium Chloride Flush 0.9% 10 Ml Syringe IVP 10 ml PRN PRN Administration NEEDED PER PROVIDER ORDERS Sodium Chloride 10 ml 05/19/22 17:00 05/22/22 09:09 Sodium Chloride Flush 0.9% 10 Ml Syringe IVP 10 ml 0100,0900,1700 YASH Administration Thiamine HCl 100 mg 05/22/22 09:00 05/22/22 09:09 Thiamine 100 Mg Tablet PO 100 mg DAILY YASH Administration - Physical Exam Comments/Other: He is pleasant, alert and oriented, comfortably sitting and comfortably talking. He is Mepilex dressing is completely dry and intact. There is no bleeding into the dressing, no hematoma or ecchymosis about the incision or upper thigh, mild swelling about left hip. There is no neurovascular deficit to left leg. There is no clinical deformity. I can move his hip passively quite well without pain. Impression/Plan - Problem List Problem List: 1. Status post left hip hemiarthroplasty The plan is to continue treatment with walker, weightbearing as tolerated left leg. The Mepilex dressing can be left in place. He can shower with the dressing in place. I have discussed extended oral antibiotic prophylaxis. Even though this is controversial, I think the benefits outweigh the risk in this situation. Chemical anticoagulation for deep venousThrombosis prophylaxis is being avoided as the risk of bleeding is too high. This was the opinion of Dr. Thompson as well. I would like to check him approximately 1 week from the time of discharge. He is tentatively being discharged tomorrow.
--- NOTE | 2022-05-22 15:52 | PROVIDER PROGRESS NOTE ---
Progress Note May 22, 2022 3:47 PM He is done very well. Pain is controlled. Yesterday he was getting tremulous, shaky, and said that he was going through mild alcohol withdrawal and he asked for beer. I have ordered the beer but he has declined it. He states that if he has 1 beer he is can have another 1 and then another 1 and then another 1. Tod ay he is much less tremulous. He is getting up and working with physical therapy. Goals are being achieved according to PT. Plan is still for him to be discharged home. Active Medications Acetaminophen (Acetaminophen 325 Mg Tablet) 650 mg PO Q4HR PRN PRN Reason: Pain 1 to 4, or Fever Beer (Beer 355 Ml Bottle) 355 ml PO TIDWM PRN PRN Reason: Alcohol Withdrawal Calcium Carbonate/Glycine (Calcium Carbonate Chew 500 Mg Tablet) 500 mg PO DAILY [facility] Last Admin: 05/22/22 09:09 Dose: 500 mg Chlordiazepoxide HCl (Chlordiazepoxide 5 Mg Capsule) 5 mg PO Q6HR PRN PRN Reason: Alcohol Withdrawal Last Admin: 05/21/22 21:29 Dose: 5 mg Cholecalciferol (Cholecalciferol 25 Mcg Tablet) 25 mcg PO DAILY [facility] Last Admin: 05/22/22 09:09 Dose: 25 mcg Morphine Sulfate (Morphine 2 Mg/Ml Carpuject) 2 mg IVP Q2HR PRN PRN Reason: Pain 8 to 10 Nicotine (Nicotine 14 Mg Patch) 1 patch TOP DAILY [facility] Last Admin: 05/22/22 09:09 Dose: 1 patch Ondansetron HCl (Ondansetron Odt 4 Mg Tablet) 4 mg TL Q6HR PRN PRN Reason: Nausea / Vomiting Ondansetron HCl (Ondansetron 4 Mg/2 Ml Vial) 4 mg IVP Q6HR PRN PRN Reason: Nausea / Vomiting Oxycodone HCl (Oxycodone 5 Mg Tablet) 5 mg PO Q4HR PRN PRN Reason: Pain 5 to 7 Last Admin: 05/22/22 14:04 Dose: 5 mg Sodium Chloride (Sodium Chloride Flush 0.9% 10 Ml Syringe) 10 ml IVP PRN PRN PRN Reason: NEEDED PER PROVIDER ORDERS Last Admin: 05/21/22 05:51 Dose: 10 ml Sodium Chloride (Sodium Chloride Flush 0.9% 10 Ml Syringe) 10 ml IVP 0100,0900,1700 [facility] Last Admin: 05/22/22 09:09 Dose: 10 ml Thiamine HCl (Thiamine 100 Mg Tablet) 100 mg PO DAILY [facility] Last Admin: 05/22/22 09:09 Dose: 100 mg Multivitamin [Multivitamins] 1 each PO DAILY 11/28/12 Aspirin [Aspirin EC] 81 mg PO DAILY 11/06/21 Atorvastatin Calcium 40 mg PO DAILY 11/23/21 Nicotine 21 mg Patch [Nicoderm] 1 each TOP ONCE 11/23/21 Ascorbic Acid [Vitamin C] 1 tab PO DAILY 05/19/22 Cholecalciferol [Vitamin D3] 1 tab PO DAILY 05/19/22 Cyanocobalamin (Vitamin B-12) [Vitamin B12] 1 tab PO DAILY 05/19/22 Temperature is 36.9. Heart rate 73. Blood pressure is low today at 97/53. Respirations are 15. 95% on room air. An alert oriented white male with alopecia, wearing glasses, comfortable and in no acute distress in bed Shotty neck adenopathy but supple Clear lungs, no crackles rhonchi wheezing and no respiratory distress Regular rate and rhythm, no murmur Abdomen is soft, nontender, quiet bowel sounds. Extremities are without edema. Orthopedics came to see the wound today and it is closed, clean, healed. The left hip is stiff and he cannot fully flex and extend. Still hurts to weight-bear but he is working with PT. Neurologically he is alert and oriented to person place and time. Following commands. No focal deficits. BMP is normal with a glucose of 105 and a calcium of 8.3. CBC shows a white cell count of 2.2, hemoglobin 7.2, hematocrit 21.9. Platelets 81,000. Assessment/plan 1. Left femur fracture. Postop day #2. Working with physical therapy, wound is good. Plan is for discharge tomorrow since pain is controlled and he is ambulating at goal set 2. Metastatic squamous cell carcinoma of head and neck. Mets are to C-spine and liver. He is to be on every 3-week cycle of chemo. With this surgery he may be delayed by a single 3-week cycle. He will need to discuss this with his oncologist in the outpatient setting. 3. Pancytopenia due to antineoplastic chemotherapy. ANC is staying controlled. Status post 1 injection of a pegylated colony-stimulating factor. Transfuse if he drops below 7. 4. Tobacco abuse. With the nicotine patch and craving is controlled 5. Alcohol abuse. He has had a banana bag IV. I am switching him to p.o. multivitamin, thiamine. Beer is available for him if he wants it.
[2022-05-23] MEDS: SODIUM CHLORIDE FLUSH 0.9% 10 ML SYRINGE IVP SCH ×3 (01:26→15:24)
[2022-05-23 05:57] LABS: BASOPHILS % (AUTO) 0.7 %; EOSINOPHILS % (AUTO) 3.4 %; HCT - HEMATOCRIT 22.2 % (42.0-52.0); HGB - HEMOGLOBIN 7.2 g/dL (14.0-18.0); LYMPHOCYTES % (AUTO) 36.3 %; MEAN CORPUSCULAR HEMOGLOBIN 35.1 pg (27.0-31.0); MEAN CORPUSCULAR HGB CONC 32.4 g/dL (32.0-36.0); MEAN CORPUSCULAR VOLUME 108.3 fL (80.0-94.0); MEAN PLATELET VOLUME 12.6 fL (7.4-11.4); MONOCYTES % (AUTO) 18.5 %; NEUTROPHILS % (AUTO) 38.4 %; PLT - PLATELET COUNT 86 10^3/uL (130-450); RED BLOOD COUNT 2.05 10^6/uL (4.70-6.10); RED CELL DISTRIBUTION WIDTH 18.2 % (12.0-15.0)
[2022-05-23 06:04] LABS: CALCIUM 8.5 mg/dL (8.5-10.3); CREATININE 0.6 mg/dL (0.6-1.2)
[2022-05-23 06:15] LABS: WHITE BLOOD COUNT 1.5 x10^3/uL (4.8-10.8)
[2022-05-23 06:16] LABS: ABNORMAL LYMPHS % (MANUAL) 0 %; BAND NEUTROPHILS % (MANUAL) 0 %
[2022-05-23 06:26] LABS: EOSINOPHILS # (MANUAL) 0.1 10^3/uL (0-0.7); LYMPHOCYTES # (MANUAL) 0.8 10^3/uL (1.5-3.5); LYMPHOCYTES % (MANUAL) 53 %; MONOCYTES # (MANUAL) 0.1 10^3/uL (0.0-1.0); NEUTROPHILS # (MANUAL) 0.5 10^3/uL (1.5-6.6); NUCLEATED RBC (MANUAL) 6 %
[2022-05-23 06:27] LABS: DIFFERENTIAL COMMENT MANUAL DIFFERENTIAL; PLATELET ESTIMATE, MANUAL DECREASED (<130,000) (NORMAL); PLATELET MORPHOLOGY 1+ GIANT PLATELETS (NORMAL)
[2022-05-23] MEDS: oxyCODONE 5 MG TABLET PO PRN (06:41)
[2022-05-23] MEDS: THIAMINE 100 MG TABLET PO SCH (09:19)
[2022-05-23] MEDS: NICOTINE 14 MG PATCH TOP SCH (09:19)
[2022-05-23] MEDS: CHOLECALCIFEROL 25 MCG TABLET PO SCH (09:19)
[2022-05-23] MEDS: CALCIUM CARBONATE CHEW 500 MG TABLET PO SCH (09:19)
--- NOTE | 2022-05-23 11:28 | Discharge Plan ---
Discharge Plan Problem Reviewed?: Yes Disposition: Home Health Service Condition: Fair Prescriptions: cephALEXin [Keflex] 500 mg PO Q6H #28 cap Cholecalciferol [Vitamin D3] 800 unit PO DAILY #30 tablet Diet: Regular Activity Restrictions: Wt Bearing as Tolerated Shower Restrictions: No Driving Restrictions: Yes (no driving) Health Concerns: You have metastatic lung cancer and are on chemotherapy that can weaken your bones and give you osteoporosis. Your cancer doctor had already recognized that and had asked you to go see a dentist to be evaluated for your teeth and jaw. The injection that oncology gives for osteoporosis can give you necrosis of the jaw and he wanted you evaluated for that before he gave you the medicine Zometa Unfortunately you fell and broke your hip before you could get that done. You have had an uneventful repair. We were worried about you because you had chemotherapy 5 days before admission and we knew that your white cells, your red cells, and your platelets were going down due to chemotherapy affecting your bone marrow. We gave you an injection to stimulate your bone marrow to make more white cells. We also transfused you have total of 3 units of packed red cells to keep your red cells up. You are still anemic but not dangerously so. We also transfuse you 1 pheresis pack of platelets. Unfortunately you abuse alcohol and had mild withdrawal while here. You also continue to smoke. We gave you a nicotine patch. We did offer you beer but you felt like if she had 1 beer you would then do another, then another, then another and opted not to drink beer while you were here. Plan of Treatment: 1. You have 2 types of dressing on your hip incision. 1 is Mepilex and it will fall off by day 7. If it has not fallen off you can take the Mepilex off on your own by 05/27/22. The Dermabond that is underneath the Mepilex will fall off on its own and you do not have to worry about it. You can take a shower with the dressing in place. If you develop fever, drainage from the wound, redness at the wound, please call the orthopedic surgeon office. 2. There are some studies that show that if you take an antibiotic for a week after surgery it decreases your risk of infection. So you will be going home on a week of Keflex 500 mg capsule, 4 times a day 3. We sometimes give medicine to prevent blood clots in the legs. We do this for up to 3 weeks after surgery. But because your platelets are low we have opted not to do that for you. 4. Orthopedic surgery would like to see you in a week in their office. Tomorrow, May 24, please call their office for an appointment for the week of May 31. 5. At this time your pain is controlled. I asked if you needed me to prescribe any medications for you at home but you said you have quite a few pills left over from your cancer therapy. So you do not feel like I need to prescribe you extra pain medicines. 6. In order to treat the weak bones, make sure you take vitamin D 800 international units once a day. In that you take calcium tablet, 500 mg, 3 times a day. With meals. Do this for at least 2 to 3 weeks before you get a Zometa injection so that the Zometa can work well with of taking calcium and your bones. 7. Make sure you see your cancer doctor in the next 1 to 2 weeks. You are currently scheduled for chemotherapy every 3 weeks. I think that your next scheduled chemotherapy will be delayed by 3 weeks until you can recover from this. Discussed this with your cancer doctor. Care Goals: Right now your goal is centered on getting through this current episode of hip fracture. You will need rehab to get stronger and I have ordered home health wi physical therapy. Your next goal is to stay alive as long as possible on your current regimen for your cancer. The chemo is not curative and the intent is palliative. Assessment: Patient is alert, oriented. Understands care instructions and care goals. His son is a clinical nursing manager here on our wards and will be living with dad and helping take care of him. He also endorses that that will follow through Follow-Up Care: Home Health - RN, Home Health - PT, Home Health - OT No Smoking: If you smoke, Please STOP! Call for help.
--- NOTE | 2022-05-23 12:11 | DISCHARGE SUMMARY ---
"Discharge Summary Admit Date: 05/19/22 Discharge Date: 05/23/22 Discharging Provider: Brianna Thompson MD Primary Care Provider: Julien Boogie MD; [facility] Code Status: Do Not Attempt Resuscitation Condition at Discharge: Fair Discharge Disposition: 06 Home Health Service - DIAGNOSES Discharge Diagnoses with Status of Each Condition: 1. Left femur fracture 2. Fall at home 3. 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 Pancytopenia due to antineoplastic chemotherapy 5. Tobacco abuse 6. Alcohol abuse 7. Tremulousness secondary to alcohol withdrawal 8. Preoperative evaluation - HPI History of Present Illness: This unfortunate gentleman presented to oncology in October 2021 because of a right-sided neck mass with a right forearm mass. He is a greater than 30-pack-y ear smoker. The mass was biopsied October 29 and showed a moderately differentiated squamous cell carcinoma. Staging CT of the neck, chest, abdomen and pelvis showed liver mets. The mass continued to grow was quite uncomfortable and he was started on triple therapy with combination of cis-[place], pembrolizumab. Treatment intent is palliative. The right forearm was eventually biopsied and it is proven to be metastatic disease. He also had C3 osteolytic metastatic disease with collapse. The metastatic disease is in the neural foramina of C2-C3 and C3-C4 with pathologic fracture. He remains asymptomatic with regards to the neck. His overall pain in the forearm and neck is managed by oxycodone 5 mg every 4-6 hours as needed. He completed 6 cycles of pembrolizumab/carboplatin/paclitaxel. Starting May 14 he is going to be continued on paclitaxel and pembrolizumab every 3 weeks. Complications of chemotherapy have been thrombocytopenia. He was supposed to receive Zometa once he received a dental evaluation. Today he had a ground-level fall and slipped and fell on his left side. There is no blow to his head, no loss of consciousness and he does not take any blood thinners other than an aspirin. He has been unable to weight-bear on the left hip and it is shortened and externally rotated. EMS was called and he was brought to the emergency room. Work-up in the emergency room included a C-spine CT. He has a stable appearing subacute to chronic pathologic fracture of the left side of C3 vertebral body that is not significantly changed. No new C-spine fractures or dislocation. Is a stable appearing soft tissue fullness along the overlying anterior and inferior aspect of the right submandibular gland unchanged from previous CT. Head CT is without acute intracranial abnormalities. He does have age-related volume loss and moderate white matter chronic small vessel ischemic changes. Pelvis x-ray has an acute displaced left femoral neck fracture. The femur film describes it as involving the subcapital region of the left femoral neck. No mid to distal femoral shaft fracture. The emergency room provider discussed the case with me. I in turn discussed the case with Dr. Jenkins (orthopedics) and HALEIGH Adame all day. The patient himself denies any acute shortness of breath, worsening cardiovascular changes, chest pain, and has no previous history of stroke, CT, atrial fibrillation or valvular heart disease. After group discussion, it was decided that the patient will be an adequate candidate for facility even though we are a critical access hospital. I am being asked to admit the patient to my service with orthopedic consultation. - Past Medical History Cardiovascular: reports: None Respiratory: reports: None Neuro: reports: None Endocrine/Autoimmune: reports: None GI: reports: None : reports: None HEENT: reports: Chronic vision loss, Chronic hearing loss Psych: reports: None Musculoskeletal: reports: Osteoarthritis, Gout Derm: reports: None MRSA Hx?: No Other Past Medical History: 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 alcohol abuse. tobacco abuse - Past Surgical History General: reports: Colonoscopy Ortho: reports: Arthroscopic surgery, Other HEENT: reports: Cataracts - CONSULTS | PROCEDURES Procedures: 1. Hemiarthroplasty left hip using [employer] Synergy high offset #16 femoral stem, bipolar 51 mm head, -3 mm, noncemented. Done May 20, 2022. 2. Transfusion of 3 units of packed cells 3. Transfusion of 1 irradiated pheresis platelet pack 4. Cervical spine CT with stable appearing subacute to chronic pathologic fracture involving the left side of C3 vertebral body. Not changed from previous studies. Degenerative disc disease throughout the C-spine. Unchanged stable appearing soft tissue fullness along the overlying anterior inferior aspect of the right submandibular gland. 5. Head CT with no acute intracranial abnormalities. Age-related volume loss and moderate white matter disease seen. 6. Pelvis x-ray with acute displaced left femoral neck fracture 7. Femur x-ray with acute displaced fracture involving subcapital region of le ft femoral neck. 8. Postoperative hip with pelvis imaging shows left femoral arthroplasty in good position 9. Neulasta 6 mg subcu once on May 20 - HOSPITAL COURSE Hospital Course: This gentleman was admitted to the hospital and stabilized in preparation for surgery. He received 1 unit of blood before surgery. A second unit of blood the morning of surgery. And a platelet pheresis pack. He also received 6 mg of subcutaneous Neulasta. There is no acute events after his surgery. He required another unit of blood on the day of discharge. Platelets stayed stable. Usual DVT prophylaxis was aspirin twice daily but not given to this gentleman because of his low platelets. It is also recommended that he get up to a week of oral antibiotic therapy. Recent literature is suggesting decreased rate of infection with this. Considering his immunocompromise status, and his pancytopenia, he is sent home on 7 days of Keflex. He states the pain is well controlled. He also states that if he does get pain he already has pain medicine at home so does not need any prescriptions at this time. A front wheel walker, bedside commode, and any other durable medical equipment was obtained from either the [employer] or [employer]. He did have a little bit of tremulousness from alcohol withdrawal and we did offer him beer. He stated that he has no intention of quitting. But after ordering a beer, the patient declined. He said that he is afraid that if he drinks 1 beer he will require another and then another and another. So he did not drink while he was here in the hospital. Nicotine patch was provided for tobacco withdrawal. At discharge he is an alert oriented white male with diffuse alopecia, wearing glasses. Temperature is 36.6. Heart rate 72. Blood pressure 98/58. Respirations 17. 93% on room air. He is an alert oriented white male, comfortable, watching the [employer] game in in [place]. Neck is supple. Shotty adenopathy. Right submandibular area fullness of soft tissue mass. Lungs have diminished breath sounds at the bases but otherwise clear. No increased respiratory effort. No crackles rhonchi or wheezing. PMI normally placed and he has a regular rate and rhythm. The abdomen is soft, nontender. Normal bowel sounds. Last bowel movement was May 21. The hip wound is closed, clean, there is no surrounding redness around the bandage. No heat. No drainage. He is stiff with flexion extension in that hip. But otherwise full range of motion in other extremities. Greater than 30 minutes was spent coordinating discharge. He is being sent home with home health. He does not want to go to nursing home facility for rehab. His son is a associate director of nursing here at the hospital and son plans on taking time off to take care of dad. We are recommending a vitamin and thiamine to supplement requirement for Vit Bs and folate. We are also recommending thiamine. He was going to be evaluated with his dentist to be able to get Zometa. That was mentioned with his last oncology appointment. But he did not have the time to do that before he fell and broke his hip. We are recommending calcium 3 times a day with vitamin D 800 international units a day. Is emphasized that he take them on a daily basis in preparation for getting Zometa. He needs to see his primary care provider in follow-up with the [facility]. He should strongly consider stopping drinking and smoking. He should also follow- up with his oncologist in follow-up. Greater than 30 minutes was spent coordinating discharge. - ALLERGIES Allergies/Adverse Reactions: Allergies Allergy/AdvReac Type Severity Reaction Status Date / Time No Known Drug Allergies Allergy Verified 05/19/22 12:09 - MEDICATIONS Home Medications: Ambulatory Orders Medication Instructions Recorded Confirmed Multivitamin [Multivitamins] 1 each PO DAILY 11/28/12 05/19/22 Aspirin [Aspirin EC] 81 mg PO DAILY 11/06/21 05/19/22 Atorvastatin Calcium 40 mg PO DAILY 11/23/21 05/19/22 Nicotine 21 mg Patch [Nicoderm] 1 each TOP ONCE 11/23/21 05/19/22 Ascorbic Acid [Vitamin C] 1 tab PO DAILY 05/19/22 05/19/22 Cholecalciferol [Vitamin D3] 1 tab PO DAILY 05/19/22 05/19/22 Cyanocobalamin (Vitamin B-12) 1 tab PO DAILY 05/19/22 05/19/22 [Vitamin B12] Calcium Carbonate [Tums (Calcium 500 mg PO DAILY tab 05/23/22 Carbonate 500mg)] Cholecalciferol [Vitamin D3] 800 unit PO DAILY #30 tablet 05/23/22 Thiamine [Vitamin B-1] 100 mg PO DAILY tab 05/23/22 cephALEXin [Keflex] 500 mg PO Q6H #28 cap 05/23/22 - LABS Result Diagrams: 05/23/22 04:55 05/23/22 04:55"
[2022-05-23] MEDS: cephALEXin 250 MG CAPSULE PO SCH ×2 (13:05→17:20)
[2022-05-23 17:27] VITALS: BP 133/57
== END 2022-05-23 17:34 | disposition home health service (06) | DRG 521 ==
LOC: ED 12:02 → MS3 13:29
PROVIDERS: ADMIT Specialist; ATTEND Specialist
PROC: 30233N1 Transfusion of Nonautologous Red Blood Cells into Peripheral Vein, Percutaneous Approach (ICD-10-PCS; 2022-05-20)
PROC: 0SRS01A Replacement of Left Hip Joint, Femoral Surface with Metal Synthetic Substitute, Uncemented, Open Approach (ICD-10-PCS; principal; 2022-05-20 12:00)
DX: S72.012A Unspecified intracapsular fracture of left femur, initial encounter for closed fracture (principal); D61.810 Antineoplastic chemotherapy induced pancytopenia; F10.139 Alcohol abuse with withdrawal, unspecified; C78.7 Secondary malignant neoplasm of liver and intrahepatic bile duct; C79.89 Secondary malignant neoplasm of other specified sites; C79.51 Secondary malignant neoplasm of bone; M84.58XA Pathological fracture in neoplastic disease, other specified site, initial encounter for fracture; W01.0XXA Fall on same level from slipping, tripping and stumbling without subsequent striking against object, initial encounter; C76.0 Malignant neoplasm of head, face and neck; H54.7 Unspecified visual loss; H91.90 Unspecified hearing loss, unspecified ear; M50.30 Other cervical disc degeneration, unspecified cervical region; M19.90 Unspecified osteoarthritis, unspecified site; M10.9 Gout, unspecified; R39.15 Urgency of urination; R35.1 Nocturia; R05.9 Cough, unspecified; L29.9 Pruritus, unspecified; F17.210 Nicotine dependence, cigarettes, uncomplicated; Z20.822 Contact with and (suspected) exposure to COVID-19; Z66 Do not resuscitate; Z79.82 Long term (current) use of aspirin; Z79.899 Other long term (current) drug therapy; Z80.1 Family history of malignant neoplasm of trachea, bronchus and lung; Z82.3 Family history of stroke; Z82.49 Family history of ischemic heart disease and other diseases of the circulatory system
CPT/HCPCS: 36415; 70450; 72125; 72170; 73501; 73552; 80048; 80053; 81001; 83690; 83735; 84100; 85025; 85610; 86850; 86900; 86901; 86920; 87040; 87635; 97162; 97166; 97530; 97535; 99283; 99285; A9270; C1713; J0690; J2506; J2795; J3370; J3411; J7120; P9016; P9037; 87086

== ENCOUNTER 2022-06-01 13:28 | Outpatient (CLI) | payer OTHER ==
[2022-06-01 17:57] LABS: BASOPHILS # (AUTO) 0.1 10^3/uL (0.0-0.1); BASOPHILS % (AUTO) 0.6 %; EOSINOPHILS % (AUTO) 0.2 %; HCT - HEMATOCRIT 29.8 % (42.0-52.0); HGB - HEMOGLOBIN 9.6 g/dL (14.0-18.0); LYMPHOCYTES # (AUTO) 0.9 10^3/uL (1.5-3.5); LYMPHOCYTES % (AUTO) 8.5 %; MEAN CORPUSCULAR HEMOGLOBIN 34.2 pg (27.0-31.0); MEAN CORPUSCULAR HGB CONC 32.2 g/dL (32.0-36.0); MEAN PLATELET VOLUME 10.9 fL (7.4-11.4); MONOCYTES # (AUTO) 0.6 10^3/uL (0.0-1.0); MONOCYTES % (AUTO) 6.1 %; NEUTROPHILS # (AUTO) 8.8 10^3/uL (1.5-6.6); NEUTROPHILS % (AUTO) 83.7 %; PLT - PLATELET COUNT 315 10^3/uL (130-450); RED BLOOD COUNT 2.81 10^6/uL (4.70-6.10); RED CELL DISTRIBUTION WIDTH 18.2 % (12.0-15.0); WHITE BLOOD COUNT 10.5 x10^3/uL (4.8-10.8)
[2022-06-01 18:12] LABS: ALBUMIN 3.6 g/dL (3.2-5.5); ALBUMIN/GLOBULIN RATIO 0.9 (1.0-2.2); BILIRUBIN,TOTAL 1.1 mg/dL (0.2-1.0); CALCIUM 9.7 mg/dL (8.5-10.3); CREATININE 0.7 mg/dL (0.6-1.2); POTASSIUM 4.6 mmol/L (3.5-5.0); TOTAL PROTEIN 7.8 g/dL (6.7-8.2)
== END 2022-06-01 13:29 | disposition home or self-care (01) ==
LOC: LAB.N 13:28
PROVIDERS: ATTEND Nurse Practitioner Adult Health
DX: C76.0 Malignant neoplasm of head, face and neck (principal); C41.9 Malignant neoplasm of bone and articular cartilage, unspecified; R53.83 Other fatigue; R53.81 Other malaise; D69.6 Thrombocytopenia, unspecified
CPT/HCPCS: 36415; 80053; 85025

== ENCOUNTER 2022-11-14 22:27 | Outpatient (CLI) | payer OTHER | END 2022-11-14 22:28 | disposition critical access hospital (66) | LOC: EMS 22:27 | DX: R07.89 Other chest pain (principal) | CPT/HCPCS: A0425; A0429 ==

== ENCOUNTER 2022-11-14 22:49 | Emergency (ER) | payer OTHER ==
--- NOTE | 2022-11-14 23:10 | ED Physician Documentation ---
PD HPI CHEST PAIN - Stated complaint Stated Complaint: SOA/CHEST PX - Chief complaint Chief Complaint: Cardiac - History obtained from History obtained from: Patient - Additional information Additional information: Patient is a 62-year-old male with a history of metastatic squamous cell carcinoma presenting for evaluation of left-sided chest pain present since 10 PM. It woke him from his sleep.He describes it as a sharp pain. The pain does not radiate. Per the son at the bedside he has had other episodes of pain like this but they usually resolve after 30 minutes. This 1 has lasted longer. He took his usual dose of morphine. He also has taken aspirin tonight. He reported initially feeling some shortness of breath. He has completed a course of chemotherapy for his cancer and is scheduled to start radiation therapy tomorrow.He does drink and has had approximately 8 beers this afternoon.He does not take a blood thinner. He denies a history of PE or DVT. He denies a history of known coronary artery disease. He does not take medicine for blood pressure or diabetes.His Oncologist is Dr. Velasco. Review of Systems Constitutional: denies: Fever Nose: denies: Congestion Cardiac: reports: Chest pain / pressure Respiratory: reports: Dyspnea. denies: Cough GI: denies: Abdominal Pain, Vomiting, Bloody / black stool : denies: Dysuria Musculoskeletal: denies: Extremity pain, Extremity swelling PD PAST MEDICAL HISTORY - Past Medical History Cardiovascular: None Respiratory: None Neuro: None Endocrine/Autoimmune: None GI: None : None HEENT: Chronic vision loss, Chronic hearing loss Psych: None Musculoskeletal: Osteoarthritis, Gout Derm: None - Past Surgical History Past Surgical History: Yes General: Colonoscopy Ortho: Arthroscopic surgery, Other HEENT: Cataracts - Present Medications Home Medications: Ambulatory Orders Medication Instructions Recorded Confirmed Multivitamin [Multivitamins] 1 each PO DAILY 11/28/12 11/14/22 Aspirin [Aspirin EC] 81 mg PO DAILY 11/06/21 11/14/22 Atorvastatin Calcium 40 mg PO DAILY 11/23/21 11/14/22 Ascorbic Acid [Vitamin C] 1 tab PO DAILY 05/19/22 11/14/22 Cholecalciferol [Vitamin D3] 1 tab PO DAILY 05/19/22 11/14/22 Cyanocobalamin (Vitamin B-12) 1 tab PO DAILY 05/19/22 11/14/22 [Vitamin B12] Calcium Carbonate [Tums (Calcium 500 mg PO DAILY tab 05/23/22 11/14/22 Carbonate 500mg)] Cholecalciferol [Vitamin D3] 800 unit PO DAILY #30 tablet 05/23/22 11/14/22 Thiamine [Vitamin B-1] 100 mg PO DAILY tab 05/23/22 11/14/22 Aspirin [[place] Aspirin] 81 mg PO UD 09/17/22 11/14/22 Atorvastatin [Lipitor] 40 mg PO DAILY 09/17/22 11/14/22 Escitalopram Oxalate 20 mg PO UD 09/17/22 11/14/22 Ondansetron HCl 4 mg PO Q4HR PRN 09/17/22 11/14/22 Senna [Senokot] 17.2 mg PO BID 09/17/22 11/14/22 oxyCODONE [Roxicodone] 5 mg PO Q4-6H PRN 09/17/22 11/14/22 polyethylene glycoL 3350 [Miralax] 17 gm PO DAILY 09/17/22 11/14/22 - Allergies Allergies/Adverse Reactions: Allergies Allergy/AdvReac Type Severity Reaction Status Date / Time No Known Drug Allergies Allergy Verified 11/14/22 22:59 - Social History Does the pt smoke?: No Smoking Status: Current every day smoker Does the pt drink ETOH?: Yes Does the pt have substance abuse?: No - Immunizations Immunizations are current?: Yes - POLST Patient has POLST: No POLST Status: DNR ("I have not made it legal" but he says he wants to be a DNR) PD ED PE NORMAL - General General: Alert and oriented X 3, No acute distress, Well developed/nourished - HEENT HEENT: Atraumatic, Moist mucous membranes - Neck Neck: Supple, no meningeal sign - Cardiac Cardiac: RRR, No murmur - Respiratory Respiratory: No respiratory distress, Clear bilaterally - Abdomen Abdomen: Soft, Non tender - Derm Derm: Warm and dry - Extremities Extremities: No edema, No calf tenderness / cord - Neuro Neuro: Normal speech Results - Vitals Vitals: Vital Signs - 24 hr 11/14/22 11/14/22 11/15/22 22:45 23:45 00:13 Temperature 37.8 C Heart Rate 80 75 75 Respiratory 18 29 H 13 Rate Blood Pressure 123/69 121/60 103/60 O2 Saturation 95 97 100 Oxygen O2 Source Room air - EKG (time done) 2252 EKG releavant findings:: EKG personally interpreted by author of this note. Relevant findings are: Rate 80, normal sinus rhythm, no STEMI, QTc 10/13/1940 Rate: Rate (enter#) (80) Rhythm: NSR Ischemia: No: ST elevation c/w ischemia Compare to prior EKG: Old EKG unavailable - Labs Labs: Laboratory Tests 11/14/22 11/14/22 11/14/22 23:15 23:15 23:15 WBC 7.6 RBC 3.97 L Hgb 11.9 L Hct 37.9 L MCV 95.5 H MCH 30.0 MCHC 31.4 L RDW 12.6 Plt Count 218 MPV 9.5 Neut # (Auto) 6.2 Lymph # (Auto) 0.8 L Powell # (Auto) 0.5 Eos # (Auto) 0.1 Baso # (Auto) 0.0 Absolute Nucleated RBC 0.00 Nucleated RBC % 0.0 Sodium 135 Potassium 3.7 Chloride 96 L Carbon Dioxide 27 Anion Gap 12.0 BUN 14 Creatinine 0.7 Estimated GFR (MDRD) 115 Glucose 107 H Calcium 10.6 H Total Bilirubin 0.8 AST 26 ALT 16 Alkaline Phosphatase 106 Troponin I High Sens 10.0 Total Protein 7.4 Albumin 3.1 L Globulin 4.3 H Albumin/Globulin Ratio 0.7 L Lipase 23 11/15/22 02:00 WBC RBC Hgb Hct MCV MCH MCHC RDW Plt Count MPV Neut # (Auto) Lymph # (Auto) Powell # (Auto) Eos # (Auto) Baso # (Auto) Absolute Nucleated RBC Nucleated RBC % Sodium Potassium Chloride Carbon Dioxide Anion Gap BUN Creatinine Estimated GFR (MDRD) Glucose Calcium Total Bilirubin AST ALT Alkaline Phosphatase Troponin I High Sens 11.3 Total Protein Albumin Globulin Albumin/Globulin Ratio Lipase PD Medical Decision Making - ED course Complexity details: reviewed results, re-evaluated patient, d/w patient, d/w family ED course: Patient is a 62-year-old male with metastatic squamous cell carcinoma presenting for evaluation of left-sided chest pain and shortness of air. His EKG shows no signs of acute ischemia. His vital signs appear stable. CBC, chemistry and troponin were obtained without any significant findings. Patient does have mild baseline anemia without any significant worsening today. I reviewed his chest x-ray and see no signs of consolidation or effusion. Given his history of cancer I did obtain a CTA of his chest to evaluate for pulmonary embolism. It is negative for PE or consolidation. I did review CTA results with patient and his son Including concerns for progressive metastatic disease. Patient was resting comfortably here with no pain. A repeat troponin is negative. ACS seems unlikely given 2 negative high-sensitivity troponins and atypical symptoms.His symptoms also do not suggest unstable angina.Discussed need for close follow-up with his primary care provider and oncologist. Patient and his son are advised on concerning symptoms to return for. Patient was discharged during [facility] downtime. Discharge instructions were handwritten on Downtime discharge forms. Departure - Departure Disposition: 01 Home, Self Care Clinical Impression: Chest pain Condition: Stable Discharge Date/Time: 11/15/22 02:45
[2022-11-14 23:25] LABS: BASOPHILS % (AUTO) 0.5 %; EOSINOPHILS # (AUTO) 0.1 10^3/uL (0.0-0.7); EOSINOPHILS % (AUTO) 0.9 %; HCT - HEMATOCRIT 37.9 % (42.0-52.0); HGB - HEMOGLOBIN 11.9 g/dL (14.0-18.0); LYMPHOCYTES # (AUTO) 0.8 10^3/uL (1.5-3.5); LYMPHOCYTES % (AUTO) 10.6 %; MEAN CORPUSCULAR HGB CONC 31.4 g/dL (32.0-36.0); MEAN CORPUSCULAR VOLUME 95.5 fL (80.0-94.0); MEAN PLATELET VOLUME 9.5 fL (7.4-11.4); MONOCYTES # (AUTO) 0.5 10^3/uL (0.0-1.0); MONOCYTES % (AUTO) 6.2 %; NEUTROPHILS # (AUTO) 6.2 10^3/uL (1.5-6.6); NEUTROPHILS % (AUTO) 81.3 %; PLT - PLATELET COUNT 218 10^3/uL (130-450); RED BLOOD COUNT 3.97 10^6/uL (4.70-6.10); RED CELL DISTRIBUTION WIDTH 12.6 % (12.0-15.0); WHITE BLOOD COUNT 7.6 x10^3/uL (4.8-10.8)
[2022-11-14] MEDS ORDERED: iohexoL-300 100 ML VIAL ONE (23:36)
[2022-11-14 23:51] LABS: ALBUMIN 3.1 g/dL (3.2-5.5); ALBUMIN/GLOBULIN RATIO 0.7 (1.0-2.2); BILIRUBIN,TOTAL 0.8 mg/dL (0.2-1.0); CALCIUM 10.6 mg/dL (8.5-10.3); CREATININE 0.7 mg/dL (0.6-1.2); POTASSIUM 3.7 mmol/L (3.5-5.0); TOTAL PROTEIN 7.4 g/dL (6.7-8.2)
--- NOTE | 2022-11-14 23:54 | XRAY Report ---
PROCEDURE: Chest 1 View X-Ray INDICATIONS: Chest pain TECHNIQUE: One view of the chest was acquired. COMPARISON: Chest x-ray 11/23/2021. FINDINGS: Surgical changes and devices: Left chest wall subclavian Port-A-Cath appears stable in position. Lungs and pleura: No pleural effusions or pneumothorax. Lungs are clear. Mediastinum: Mediastinal contours appear normal. Heart size is normal. Bones and chest wall: No suspicious bony lesions. Overlying soft tissues appear unremarkable. IMPRESSION: No acute cardiopulmonary disease. Reviewed by: Power Escalera MD on 11/14/2022 11:53 PM PDT Approved by: Power Escalera MD on 11/14/2022 11:53 PM PDT Station ID: [id number]
[2022-11-15] MEDS ORDERED: iohexoL-300 100 ML VIAL IVP ONE (00:11)
[2022-11-15 00:14] VITALS: BP 103/60
--- NOTE | 2022-11-15 00:40 | CT Report ---
PROCEDURE: ANGIO CHEST W/WO INDICATIONS: CP/SOA/cancer CONTRAST: IV 100 ML OMNI 300 TECHNIQUE: After the administration of intravenous contrast, 2 mm axial images were acquired from the pulmonary apices to the posterior costophrenic angles during the arterial phase. In addition, 1 mm lung kernel and 5 mm soft tissue kernel reconstructions were performed. 3-dimensional coronal oblique maximum int ensity projection (MIP) reformats, 8 mm axial MIP, and 5 mm coronal and sagittal MPR reformats were t hen performed through the thorax. For radiation dose reduction, the following was used: automated exp osure control, adjustment of mA and/or kV according to patient size. COMPARISON: CT chest 08/19/2022 FINDINGS: Image quality: Excellent. Pulmonary arteries: Pulmonary arteries are normal in size, and demonstrate no intraluminal filling d efects to suggest central pulmonary embolism. Lower Neck: There is asymmetric masslike enlargement of the right sternocleidomastoid partially visua lized in the lower neck. Thyroid: Visualized thyroid demonstrates no discrete nodules. Axillae: No lymphadenopathy by size criteria. Chest Wall: Unremarkable. Bones: Visualized osseous structures demonstrate no suspicious lesions. Lungs and Airways: There is bilateral atelectasis within the lower lobes. No suspicious pulmonary nod ules. The trachea and central airways are patent. Pleura: No pneumothorax or pleural effusions. Heart: Heart size is normal. No pericardial effusion. Thoracic Vessels: The thoracic aorta is normal in size. Mediastinum and Jane: No lymphadenopathy by size criteria. Esophagus: No wall thickening. No hiatal hernia. Abdomen: Visualized upper abdomen demonstrates a cyst within the right hepatic dome as well as a few small low-density foci which are too small to characterize but likely represent cysts. There are als o 2 cysts within the visualized spleen. IMPRESSION: 1. No evidence of pulmonary embolism. 2. No acute airspace consolidation. There is bilateral atelectasis within the lower lobes. 3. Asymmetric masslike enlargement of the right sternocleidomastoid. The findings are nonspecific but likely represent progressive metastatic disease. Reviewed by: Power Fountain MD on 11/15/2022 12:38 AM PDT Approved by: Power Fountain MD on 11/15/2022 12:38 AM PDT Station ID: [id number]
== END 2022-11-15 02:45 | disposition home or self-care (01) ==
LOC: EDUNIT# → ED 22:49
DX: R07.9 Chest pain, unspecified (principal); C80.1 Malignant (primary) neoplasm, unspecified; F17.200 Nicotine dependence, unspecified, uncomplicated; Z79.82 Long term (current) use of aspirin; Z79.899 Other long term (current) drug therapy
CPT/HCPCS: 36415; 71045; 71275; 80053; 83690; 84484; 85025; 93005; 99283; 99284; Q9967